=== PATIENT | male | born 1975 | race Caucasian/White ===

== ENCOUNTER 2019-08-14 13:10 | Emergency (ER) | payer SELFPAY ==
[2019-08-14 13:44] VITALS: BP 150/107; PULSE 92
--- NOTE | 2019-08-14 14:17 | EDM.PDOCBH ---
ED HPI GENERAL MEDICAL PROBLEM - General Chief Complaint: Behavioral/Psych Stated Complaint: DEPRESSION Time Seen by Provider: 08/14/19 13:29 Source of Information: Reports: Patient History Limitations: Reports: No Limitations - History of Present Illness INITIAL COMMENTS - FREE TEXT/NARRATIVE: Mr. Alexander is a very pleasant 44-year-old man with a past medical history significant for anxiety and depression. He states that he was on venlafaxine ( Effexor) from 2010 until last summer, at which time he discontinued the medication due to side effects including "brain tremors" and impotence. He states that the decision to discontinue the medication was made in consultation with his PCP, who prescribed a different antidepressant, however, the patient acknowledges that he did not feel that prescription out of fear of similar side effects. The patient now presents to the ED stating that he has been feeling anxious and depressed, along with insomnia for about 1 month. He states that he sleeps only about 3 hours per night. He also reports developing retrosternal chest discomfort, a tightness, for about the past month, that only occurs when he is feeling anxious, and typically persist for about 18 to 20 minutes. When he is feeling anxious with chest discomfort, he also feels nauseated and has sweaty palms. He denies associated dyspnea. The patient states that he has been feeling somewhat suicidal for the past month , however, he has not formulated a plan. He states that he considered shooting himself when he was in his 20s, and even though he had a gun, he talked himself out of it. He was psychiatrically hospitalized at that time for 4 days. He denies any other considerations to harm himself, and has never been otherwise psychiatrically hospitalized. The patient denies recent fever, chills, sore throat, ear pain, nasal or sinus congestion, cough, dyspnea, chest pain, palpitations, nausea, vomiting, constipation, diarrhea, abdominal pain, urinary symptoms, recent weight gain or weight loss, recent bloody bowel movements or black bowel movements, recent joint aches, headaches, or rashes. Here in the ED, the patient's initial BP is found to be elevated at 150/107, otherwise, he is hemodynamically stable, afebrile, saturating 98% on room air. The patient does not have a PCP. - Related Data Allergies Allergy/AdvReac Type Severity Reaction Status Date / Time morphine Allergy Hives Verified 11/25/18 02:16 Home Meds: Home Meds Escitalopram [Lexapro] 10 mg PO DAILY #30 tab 08/14/19 [Rx] Past Medical History Gastrointestinal History: Reports: Diverticulosis (diverticulitis), GERD, Hiatal Hernia Genitourinary History: Reports: Renal Calculus, Other (See Below) (Hepatic steatosis) Psychiatric History: Reports: Anxiety (untreated), Depression (untreated) Endocrine/Metabolic History: Reports: Obesity/BMI 30+ - Past Surgical History GI Surgical History: Reports: Hernia, Inguinal (bilateral, as an infant), Other (See Below) (Pyloroplasty as an infant) Male Surgical History: Reports: Lithotripsy (ESWL) (x 2) Musculoskeletal Surgical History: Reports: Other (See Below) (Right hand repair) Social & Family History - Tobacco Use Smoking Status *Q: Never Smoker - Caffeine Use Caffeine Use: Reports: None - Alcohol Use Alcohol Use History: No - Recreational Drug Use Recreational Drug Use: Yes Drug Use in Last 12 Months: Yes Recreational Drug Type: Reports: LSD (Acid) (last tried as a teenager), Marijuana/Hashish (last smoked late Jun 2019), Psilocybin (Mushrooms) (last tried as a teenager) - Living Situation & Occupation Living situation: Reports: Single, with Family Occupation: Employed ([employer]) ED ROS GENERAL - Review of Systems Review Of Systems: Comprehensive ROS is negative, except as noted in HPI. ED EXAM, BEHAVIORAL HEALTH - Physical Exam Exam: See Below Exam Limited By: No Limitations General Appearance: Alert, WD/WN, No Apparent Distress Eye Exam: Bilateral Eye: EOMI, Normal Inspection Ears: Normal External Exam, Hearing Grossly Normal Nose: Normal Inspection Throat/Mouth: Normal Inspection, Normal Lips, Normal Voice, No Airway Compromise Head: Atraumatic, Normocephalic Neck: Normal Inspection, Full Range of Motion Respiratory/Chest: No Respiratory Distress, Lungs Clear, Normal Breath Sounds, No Accessory Muscle Use Cardiovascular: Normal Peripheral Pulses, Regular Rate, Rhythm, No Edema, No Gallop, No JVD, No Murmur, No Rub GI/Abdominal: Normal Bowel Sounds, Soft, Non-Tender, No Organomegaly, No Distention, No Abnormal Bruit, No Mass (Male) Exam: Deferred Rectal (Males) Exam: Deferred Back Exam: Normal Inspection, Full Range of Motion, NT Extremities: Normal Inspection, Normal Range of Motion, No Pedal Edema, Normal Capillary Refill Neurological: Alert, Normal Cognition, No Motor/Sensory Deficits, Oriented x 3 Psychiatric: Normal Affect Skin Exam: Warm, Dry, Intact, Normal color, No rash COURSE, BEHAVIORAL HEALTH COMP - Course Vital Signs: Last Vital Signs Temp 37.0 C 08/14/19 13:27 Pulse 92 08/14/19 13:27 Resp 18 08/14/19 13:27 BP 150/107 H 08/14/19 13: Pulse Ox 98 08/14/19 13: Medical Clearance: 08/14/19 14:11 As above, the patient has been feeling anxious and depressed with vague feelings of harming himself over the past month, however, he has no plan and no prior attempt at harming himself. When offered the choice of being restarted on an antidepressant or being psychiatrically admitted so that he could be evaluated by a Psychiatrist, the patient stated that he did not want either, that he came to the ED hoping that I would prescribe a sleeping pill. I asked if he had considered Benadryl for sleep, but he stated that Benadryl made him feel hung-over in the morning. I explained that, under the circumstances, I did not think that prescribing a sleeping pill would be the right choice, that it would only mask his insomnia, and not address the underlying cause of his insomnia, namely, his untreated anxiety and depression. I explained that side effects with antidepressants are common, and that if one medication does not work, another should be tried, and that these medicines oftentimes take 3 or 4 weeks before they take effect, and that patients need to be patient with them. I explained that because of monitoring for side effects and possible dosage adjustments, these medications are rarely prescribed from the emergency department, however, if the patient agreed to follow-up with a PCP soon, I could start him on an antidepressant, different than the one he was on before. The patient agreed to this. For today's purposes, then, I will prescribe escitalopram (Lexapro), however, I advised the patient that the PCP that he follows up with may not want him to be on that, that they may prefer something else, so the patient needs to be aware that they may switch him. The patient expressed understanding. I will refer him to our clinic for follow-up, with the recommendation that if his symptoms worsen, that he return to the ED for reevaluation. Departure - Departure Time of Disposition: 14:13 Disposition: Home, Self-Care 01 Condition: Good Clinical Impression: Depression with anxiety - Discharge Information *PRESCRIPTION DRUG MONITORING PROGRAM REVIEWED*: Not Applicable *COPY OF PRESCRIPTION DRUG MONITORING REPORT IN PATIENT BHAVANA: Not Applicable Prescriptions: Escitalopram [Lexapro] 10 mg PO DAILY #30 tab Instructions: Generalized Anxiety Disorder, Adult Referrals: Daria Rodríguez NP [Nurse Practitioner] - Forms: ED Department Discharge Additional Instructions: You were seen in the emergency room for 1 month of feeling anxious, depressed, difficulty sleeping, and chest pain when you are feeling anxious. Transfer to a psychiatric hospital for evaluation by a Psychiatrist was offered , but declined. You have opted to be restarted on an antidepressant medication. A prescription for escitalopram (Lexapro) has been sent to the [facility] located in the [employer] store. Take 1 tablet of escitalopram every day, as prescribed. It is very important that you follow-up with the PCP soon. Please follow-up with Daria Rodríguez NP, or one of the other providers in the clinic, at the next available appointment. If you have symptoms of depression or feelings of harming yourself worsen, please return to the ER for reevaluation. Sepsis Event Note - Evaluation Sepsis Screening Result: No Definite Risk - Focused Exam Vital Signs: Vital Signs Temp Pulse Resp BP Pulse Ox 08/14/19 13:27 37.0 C 92 18 150/107 H 98 Date Exam was Performed: 08/14/19 Time Exam was Performed: 14:35
== END 2019-08-14 14:25 | disposition home or self-care (01) ==
LOC: JD.ED 13:10
DX: F41.8 Other specified anxiety disorders (principal); E66.9 Obesity, unspecified; Z68.35 Body mass index [BMI] 35.0-35.9, adult; Z79.899 Other long term (current) drug therapy; Z88.5 Allergy status to narcotic agent
CPT/HCPCS: 99283; 99284

== ENCOUNTER 2019-08-19 16:06 | Emergency (ER) | payer SELFPAY ==
--- NOTE | 2019-08-19 16:36 | EDM.PDOCBH ---
ED HPI GENERAL MEDICAL PROBLEM - General Chief Complaint: Behavioral/Psych Stated Complaint: depression/anxiety Time Seen by Provider: 08/19/19 16:30 Source of Information: Reports: Patient History Limitations: Reports: No Limitations - History of Present Illness INITIAL COMMENTS - FREE TEXT/NARRATIVE: 44-year-old male attends the ED today with increased anxiety and suicidal thought processes over the last several days. Patient has by history chronic insomnia with disrupted sleep pattern for several months. He attended the ED and was started on Lexapro 10 mg once daily for depression symptoms by Dr. Campbell 5 days ago. This likely has increased his anxiety levels and he states it is to the point that he has had intractable nausea and vomiting yesterday due to feeling so anxious. He admits to increased suicidal ideation but has no formative plan to end his life. Has significant insomnia. Denies any regular alcohol or substance abuse. Was on Effexor for about 8 years but discontinued the medication due to side effect profile particularly impotence. 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) Abdominal Pain Score (Numeric/FACES): 3 - Related Data Allergies Allergy/AdvReac Type Severity Reaction Status Date / Time morphine Allergy Severe Hives Verified 08/19/19 16:23 Home Meds: Home Meds Escitalopram [Lexapro] 10 mg PO DAILY #30 tab 08/14/19 [Rx] ClonazePAM [KlonoPIN] 2 mg PO ASDIRECTED #36 tablet 08/19/19 [Rx] Past Medical History - Past Health History Medical/Surgical History: Denies Medical/Surgical History Gastrointestinal History: Reports: Diverticulosis, GERD, Hiatal Hernia Other Gastrointestinal History: Pyloric stenosis Genitourinary History: Reports: Renal Calculus, Other (See Below) Psychiatric History: Reports: Anxiety, Depression Endocrine/Metabolic History: Reports: Obesity/BMI 30+ - Past Surgical History GI Surgical History: Reports: Hernia, Inguinal, Other (See Below) Male Surgical History: Reports: Lithotripsy (ESWL) Musculoskeletal Surgical History: Reports: Other (See Below) Social & Family History - Tobacco Use Smoking Status *Q: Never Smoker - Caffeine Use Caffeine Use: Reports: None - Recreational Drug Use Recreational Drug Use: No - Living Situation & Occupation Living situation: Reports: Single, with Family Occupation: Employed ([employer]) ED ROS GENERAL - Review of Systems Review Of Systems: See Below Constitutional: Reports: Malaise, Weakness, Fatigue, Decreased Appetite. Denies : Fever, Chills HEENT: Reports: No Symptoms Respiratory: Reports: No Symptoms Cardiovascular: Reports: Palpitations Endocrine: Reports: Fatigue (Primarily for not sleeping) GI/Abdominal: Reports: Nausea, Vomiting (Remittent nausea and vomiting) : Reports: No Symptoms Musculoskeletal: Reports: No Symptoms Skin: Reports: No Symptoms Neurological: Reports: Dizziness Psychiatric: Reports: Anxiety (Lysed anxiety disorder for many months), Depression, Mood Lability, Suicidal Ideation (Suicidal ideation), Other ( Insomnia). Denies: Confusion, Hallucinations, Homicidal Ideation Hematologic/Lymphatic: Reports: No Symptoms Immunologic: Reports: No Symptoms ED EXAM, BEHAVIORAL HEALTH - Physical Exam Exam: See Below Exam Limited By: No Limitations General Appearance: Alert, WD/WN, Anxious, Mild Distress, Other (Essential temperature 36.7 with pulse of 78 respiratory to 16 BP 05/09/1973 pulse ox 98% room air) Eye Exam: Bilateral Eye: Normal Inspection (No scleral icterus or blepharal pallor.) Throat/Mouth: Normal Inspection, Normal Lips, Normal Teeth, Normal Oropharynx Head: Atraumatic, Normocephalic Neck: Normal Inspection, Supple, Non-Tender, Full Range of Motion. No: Lymphadenopathy (L), Lymphadenopathy (R) Respiratory/Chest: No Respiratory Distress, Lungs Clear, Normal Breath Sounds, No Accessory Muscle Use, Chest Non-Tender Cardiovascular: Normal Peripheral Pulses, Regular Rate, Rhythm, No Edema, No Gallop, No Murmur, No Rub GI/Abdominal: Normal Bowel Sounds, Soft, Non-Tender, No Organomegaly, No Mass Back Exam: Normal Inspection Extremities: Normal Inspection, Normal Range of Motion, Non-Tender, No Pedal Edema Neurological: Alert, Normal Mood/Affect, CN II-XII Intact, Normal Cognition, No Motor/Sensory Deficits, Oriented x 3 Psychiatric: Alert, Normal Affect, Normal Cognition, Normal Mood Skin Exam: Warm, Dry, Intact, Normal color, No rash COURSE, BEHAVIORAL HEALTH COMP - Course Vital Signs: Last Vital Signs Temp 36.7 C 08/19/19 16:19 Pulse 78 08/19/19 16:19 Resp 16 08/19/19 16:19 BP 128/74 08/19/19 16:19 Pulse Ox 98 08/19/19 16:19 Re-Assessment/Re-Exam: 44-year-old male presents to the ED with major depressive symptoms with increased suicidal ideation. Patient has a history of depression which was well controlled with Effexor for about 8 years but he discontinued the medication several months ago due to side effect profile particularly impotence. Currently he has developed recurrence of symptoms with generalized anxiety disorder severely disrupted sleep pattern with significant insomnia and development of depression symptoms with suicidal ideation. He was seen through the ED 5 days ago and started on Lexapro 10 mg once daily but subsequently has developed increased anxiety which is not an uncommon side effect of beginning antidepressant medication. His sleeping problems persist. He has no formulated plan of how he would end his life. Thoughts are just in his head and he can get rid of them and they seem to becoming more frequent. At this time he does not feel he needs to be placed in a psychiatric facility. We entered into a long discussion about improving his sleep habits and his disrupted sleep pattern contributes to neurochemical formation in the brain. The plan will be to start him on lorazepam 1 mg in the morning 1 mg mid afternoon if needed for anxiety relief and 2 mg at bedtime to aid sleep for the next 2 and half weeks. He will continue Lexapro 10 mg once daily but have asked him to follow-up with primary care physician to increase it to a 20 mg dose in about 14 days time. Big fellow and 10 mg dosage is unlikely to improve his depressive symptoms. Return to the ED if symptoms are not getting better or he is feeling more suicidal. Departure - Departure Time of Disposition: 16:30 Disposition: Home, Self-Care 01 Condition: Fair Clinical Impression: Anxiety and depression, Depressive disorder, Anxiety Insomnia disorder Qualifiers: Insomnia type: psychophysiologic Qualified Code(s): F51.04 - Psychophysiologic insomnia - Discharge Information *PRESCRIPTION DRUG MONITORING PROGRAM REVIEWED*: Not Applicable *COPY OF PRESCRIPTION DRUG MONITORING REPORT IN PATIENT BHAVANA: Not Applicable Prescriptions: ClonazePAM [KlonoPIN] 2 mg PO ASDIRECTED #36 tablet Instructions: Living With Depression, Suicidal Feelings: How to Help Yourself, Insomnia, Living With Anxiety Referrals: PCP,None [Primary Care Provider] - Forms: ED Department Discharge Additional Instructions: Evaluation in the emergency room today in regards to persistent problems with severe insomnia and development of significant anxiety with associated nausea vomiting and underlying major depression. Increase suicidal ideation as of late with no defined plan to end your life. Did sleep pattern over the last several months is contributing to development of anxiety and depression. Recently restarted on Lexapro once daily and I would advise continuing this medication once every morning. Medication can increase anxiety levels particular the first 10 to 12 days of use and then it usually goes away. It takes about 3 weeks to start to become effective in terms of starting to relieve suicidal ideation thoughts and starting to lift depression. Where you are likely going to need an increase in dosage to the 20 mg tablet once daily after 14 days of the 10 mg daily. In the meantime suggest use of clonazepam 1 mg in the morning and then 1 mg mid afternoon if needed for anxiety relief and 2 mg at bedtime to help sleep. Suggest using this for the next 2 weeks until the Lexapro becomes effective. Suggest follow-up with a personal care provider in 14 days time to adjust your Lexapro dose upwards to 20 mg strength. If suicidal ideation thoughts persist or you feel worse please return to the ED for help. Will call the National suicide prevention Lifeline at feel you need to talk to somebody about your symptoms. Sepsis Event Note - Evaluation Sepsis Screening Result: No Definite Risk - Focused Exam Vital Signs: Vital Signs Temp Pulse Resp BP Pulse Ox 08/19/19 16:19 36.7 C 78 16 128/74 98 Date Exam was Performed: 08/19/19 Time Exam was Performed: 16:38
[2019-08-19 19:13] VITALS: BP 128/74; PULSE 78
== END 2019-08-19 16:45 | disposition home or self-care (01) ==
LOC: JD.ED 16:06
DX: F32.9 Major depressive disorder, single episode, unspecified (principal); F41.9 Anxiety disorder, unspecified; F51.04 Psychophysiologic insomnia; E66.9 Obesity, unspecified; Z88.5 Allergy status to narcotic agent; Z79.899 Other long term (current) drug therapy; Z68.22 Body mass index [BMI] 22.0-22.9, adult
CPT/HCPCS: 99283

== ENCOUNTER 2019-08-21 16:13 | Inpatient (IN) | payer SELFPAY ==
--- NOTE | 2019-08-21 17:10 | EDM.PDOCBH ---
<Yang Montez - Last Filed: 08/21/19 17:00> ED HPI GENERAL MEDICAL PROBLEM - General Chief Complaint: Behavioral/Psych Stated Complaint: Suicidal drug ingestion Time Seen by Provider: 08/21/19 16:40 - History of Present Illness INITIAL COMMENTS - FREE TEXT/NARRATIVE: 44-year-old male is brought in by [facility] deputies after voicing concerns of being suicidal and taking a bunch of medications. Patient has a long history of depression has been off his antidepressant since last year. He was seen here on the fourth and started on Lexapro 10 mg a day of which he said he took 10 today. Counting his medication he was given 30 and he has 22 or 23 in the bottle at this time and it was filled on the fourth of this month. He also states that he took 20+ Klonopin 2 mg each and 30 trazodone 50 mg each. Will not provide enough with a history as to the timing of when he actually took these medications. He voiced to the [facility]'s deputy that he would not be alive by the end of this week. Law enforcement has been called on him today and twice yesterday. The patient was seen here 2 days ago again in follow-up for his depression when he was seen here on the fourth and 2 days ago he voiced no concerns of being actively suicidal. This unfortunate patient was discussing the situation with his mother who, informed the patient according to the patient, to take all his medications and ended all. - Related Data Allergies Allergy/AdvReac Type Severity Reaction Status Date / Time morphine Allergy Severe Hives Verified 08/21/19 16:28 Home Meds: Home Meds Escitalopram [Lexapro] 10 mg PO DAILY #30 tab 08/14/19 [Rx] ClonazePAM [KlonoPIN] 2 mg PO ASDIRECTED #36 tablet 08/19/19 [Rx] Past Medical History - Past Health History Medical/Surgical History: Denies Medical/Surgical History Gastrointestinal History: Reports: Diverticulosis, GERD, Hiatal Hernia Other Gastrointestinal History: Pyloric stenosis Genitourinary History: Reports: Renal Calculus, Other (See Below) Psychiatric History: Reports: Anxiety, Depression Endocrine/Metabolic History: Reports: Obesity/BMI 30+ - Past Surgical History GI Surgical History: Reports: Hernia, Inguinal, Other (See Below) Male Surgical History: Reports: Lithotripsy (ESWL) Musculoskeletal Surgical History: Reports: Other (See Below) Social & Family History - Tobacco Use Smoking Status *Q: Current Status Unknown - Caffeine Use Caffeine Use: Reports: None - Living Situation & Occupation Living situation: Reports: Single, with Family Occupation: Employed ([employer]) ED ROS GENERAL - Review of Systems Review Of Systems: See Below Constitutional: Reports: No Symptoms HEENT: Reports: No Symptoms Respiratory: Reports: No Symptoms Cardiovascular: Reports: No Symptoms Endocrine: Reports: No Symptoms GI/Abdominal: Reports: No Symptoms : Reports: No Symptoms Musculoskeletal: Reports: No Symptoms Skin: Reports: No Symptoms Neurological: Reports: No Symptoms Psychiatric: Reports: Agitation, Anxiety, Depression, Mood Lability, Suicidal Ideation Hematologic/Lymphatic: Reports: No Symptoms Immunologic: Reports: No Symptoms ED EXAM, BEHAVIORAL HEALTH - Physical Exam Exam: See Below Exam Limited By: No Limitations General Appearance: Alert, No Apparent Distress EKG INTERPRETATION EKG Date: 08/21/19 Rhythm: NSR Caliente: Normal P-Wave: Present QRS: Other ST-T: Normal (Late transition) QT: Normal Comparison: NA - No Prior EKG EKG Interpretation Comments: Other than the early transition normal EKG COURSE, BEHAVIORAL HEALTH COMP - Course Vital Signs: Last Vital Signs Temp 97.1 F 08/21/19 16:21 Pulse 73 08/21/19 19:00 Resp 23 H 08/21/19 19:00 BP 114/88 08/21/19 19:00 Pulse Ox 95 08/21/19 19:00 Orders, Labs, Meds: Active Orders 24 hr Category Date Time Status EKG 12 Lead [EKG Documentation Completion] [RC] STAT Care 08/21/19 16:39 Active EKG 12 Lead [EKG Documentation Completion] [RC] STAT Care 08/21/19 19:45 Active Laboratory Tests 08/21/19 08/21/19 08/21/19 Range/Units 18:29 18:29 18:53 WBC 7.06 (4.23-9.07) K/mm3 RBC 5.55 (4.63-6.08) M/mm3 Hgb 15.5 D (13.7-17.5) gm/dl Hct 47.6 (40.1-51.0) % MCV 85.8 (79.0-92.2) fl MCH 27.9 (25.7-32.2) pg MCHC 32.6 (32.2-35.5) g/dl RDW Std Deviation 45.1 H (35.1-43.9) fL Plt Count 244 (163-337) K/mm3 MPV 10.3 (9.4-12.3) fl Neut % (Auto) 56.5 (34.0-67.9) % Lymph % (Auto) 27.9 (21.8-53.1) % Hunt % (Auto) 8.1 (5.3-12.2) % Eos % (Auto) 6.8 (0.8-7.0) Baso % (Auto) 0.6 (0.1-1.2) % Neut # (Auto) 3.99 (1.78-5.38) K/mm3 Lymph # (Auto) 1.97 (1.32-3.57) K/mm3 Hunt # (Auto) 0.57 (0.30-0.82) K/mm3 Eos # (Auto) 0.48 (0.04-0.54) K/mm3 Baso # (Auto) 0.04 (0.01-0.08) K/mm3 PT (9.7-12.0) SECONDS INR Sodium (136-145) mEq/L Potassium (3.5-5.1) mEq/L Chloride (98-107) mEq/L Carbon Dioxide (21-32) mEq/L Anion Gap (5-15) BUN (7-18) mg/dL Creatinine (0.7-1.3) mg/dL Est Cr Clr Drug Dosing mL/min Estimated GFR (MDRD) (>60) mL/min BUN/Creatinine Ratio (14-18) Glucose (74-106) mg/dL Calcium (8.5-10.1) mg/dL Total Bilirubin (0.2-1.0) mg/dL AST (15-37) U/L ALT (16-63) U/L Alkaline Phosphatase (46-116) U/L Total Protein (6.4-8.2) g/dl Albumin (3.4-5.0) g/dl Globulin gm/dL Albumin/Globulin Ratio (1-2) TSH 3rd Generation (0.358-3.74) uIU/mL Urine Color Yellow (Yellow) Urine Appearance Clear (Clear) Urine pH 6.0 (5.0-8.0) Ur Specific Touchet > or = 1.030 (1.005-1.030) Urine Protein Negative (Negative) Urine Glucose (UA) Negative (Negative) Urine Ketones Negative (Negative) Urine Occult Blood Negative (Negative) Urine Nitrite Negative (Negative) Urine Bilirubin Negative (Negative) Urine Urobilinogen 0.2 (0.2-1.0) Ur Leukocyte Esterase Negative (Negative) Salicylates (2.8-20) mg/dL Urine Opiates Screen Negative (QWSDUC=946) Ur Buprenorphine Scrn Negative (CUTOFF=10) Ur Oxycodone Screen Negative (JGV6NI=143) Urine Methadone Screen Negative (GRM8LB=461) Ur Propoxyphene Screen Negative (SSSOMK=944) Acetaminophen (10-30) ug/mL Ur Barbiturates Screen Negative (LKTGQD=923) Ur Tricyclics Screen Negative (VWIFRR=330) Ur Phencyclidine Scrn Negative (CUTOFF=25) Ur Amphetamine Screen Negative (OWWJZH=501) U Methamphetamines Scrn Negative (CNBNLX=308) U Benzodiazepines Scrn Presumptive positive H (BDWSNK=661) U Cocaine Metab Screen Negative (MLHNNC=301) U Marijuana (THC) Screen Negative (CUTOFF=50) Ethyl Alcohol (0.00) gm% 08/21/19 08/21/19 08/21/19 Range/Units 18:53 18:53 18:53 WBC (4.23-9.07) K/mm3 RBC (4.63-6.08) M/mm3 Hgb (13.7-17.5) gm/dl Hct (40.1-51.0) % MCV (79.0-92.2) fl MCH (25.7-32.2) pg MCHC (32.2-35.5) g/dl RDW Std Deviation (35.1-43.9) fL Plt Count (163-337) K/mm3 MPV (9.4-12.3) fl Neut % (Auto) (34.0-67.9) % Lymph % (Auto) (21.8-53.1) % Hunt % (Auto) (5.3-12.2) % Eos % (Auto) (0.8-7.0) Baso % (Auto) (0.1-1.2) % Neut # (Auto) (1.78-5.38) K/mm3 Lymph # (Auto) (1.32-3.57) K/mm3 Hunt # (Auto) (0.30-0.82) K/mm3 Eos # (Auto) (0.04-0.54) K/mm3 Baso # (Auto) (0.01-0.08) K/mm3 PT 10.9 (9.7-12.0) SECONDS INR 1.00 Sodium 143 (136-145) mEq/L Potassium 4.1 (3.5-5.1) mEq/L Chloride 105 (98-107) mEq/L Carbon Dioxide 27 (21-32) mEq/L Anion Gap 15.1 H (5-15) BUN 13 (7-18) mg/dL Creatinine 1.3 (0.7-1.3) mg/dL Est Cr Clr Drug Dosing 84.31 mL/min Estimated GFR (MDRD) 60 (>60) mL/min BUN/Creatinine Ratio 10.0 L (14-18) Glucose 87 (74-106) mg/dL Calcium 9.3 (8.5-10.1) mg/dL Total Bilirubin 0.6 (0.2-1.0) mg/dL AST 19 (15-37) U/L ALT 32 (16-63) U/L Alkaline Phosphatase 82 (46-116) U/L Total Protein 7.8 (6.4-8.2) g/dl Albumin 3.7 (3.4-5.0) g/dl Globulin 4.1 gm/dL Albumin/Globulin Ratio 0.9 L (1-2) TSH 3rd Generation 1.731 (0.358-3.74) uIU/mL Urine Color (Yellow) Urine Appearance (Clear) Urine pH (5.0-8.0) Ur Specific Touchet (1.005-1.030) Urine Protein (Negative) Urine Glucose (UA) (Negative) Urine Ketones (Negative) Urine Occult Blood (Negative) Urine Nitrite (Negative) Urine Bilirubin (Negative) Urine Urobilinogen (0.2-1.0) Ur Leukocyte Esterase (Negative) Salicylates (2.8-20) mg/dL Urine Opiates Screen (MNGKAF=976) Ur Buprenorphine Scrn (CUTOFF=10) Ur Oxycodone Screen (RIY4ER=966) Urine Methadone Screen (DAS3YA=031) Ur Propoxyphene Screen (SHGVSC=746) Acetaminophen 0 L (10-30) ug/mL Ur Barbiturates Screen (JYHGEA=094) Ur Tricyclics Screen (ZYGEBT=507) Ur Phencyclidine Scrn (CUTOFF=25) Ur Amphetamine Screen (XCCAMO=901) U Methamphetamines Scrn (MBVRME=526) U Benzodiazepines Scrn (XZOZDC=392) U Cocaine Metab Screen (NXPGUN=049) U Marijuana (THC) Screen (CUTOFF=50) Ethyl Alcohol 0.01 (0.00) gm% 08/21/19 Range/Units 18:53 WBC (4.23-9.07) K/mm3 RBC (4.63-6.08) M/mm3 Hgb (13.7-17.5) gm/dl Hct (40.1-51.0) % MCV (79.0-92.2) fl MCH (25.7-32.2) pg MCHC (32.2-35.5) g/dl RDW Std Deviation (35.1-43.9) fL Plt Count (163-337) K/mm3 MPV (9.4-12.3) fl Neut % (Auto) (34.0-67.9) % Lymph % (Auto) (21.8-53.1) % Hunt % (Auto) (5.3-12.2) % Eos % (Auto) (0.8-7.0) Baso % (Auto) (0.1-1.2) % Neut # (Auto) (1.78-5.38) K/mm3 Lymph # (Auto) (1.32-3.57) K/mm3 Hunt # (Auto) (0.30-0.82) K/mm3 Eos # (Auto) (0.04-0.54) K/mm3 Baso # (Auto) (0.01-0.08) K/mm3 PT (9.7-12.0) SECONDS INR Sodium (136-145) mEq/L Potassium (3.5-5.1) mEq/L Chloride (98-107) mEq/L Carbon Dioxide (21-32) mEq/L Anion Gap (5-15) BUN (7-18) mg/dL Creatinine (0.7-1.3) mg/dL Est Cr Clr Drug Dosing mL/min Estimated GFR (MDRD) (>60) mL/min BUN/Creatinine Ratio (14-18) Glucose (74-106) mg/dL Calcium (8.5-10.1) mg/dL Total Bilirubin (0.2-1.0) mg/dL AST (15-37) U/L ALT (16-63) U/L Alkaline Phosphatase (46-116) U/L Total Protein (6.4-8.2) g/dl Albumin (3.4-5.0) g/dl Globulin gm/dL Albumin/Globulin Ratio (1-2) TSH 3rd Generation (0.358-3.74) uIU/mL Urine Color (Yellow) Urine Appearance (Clear) Urine pH (5.0-8.0) Ur Specific Touchet (1.005-1.030) Urine Protein (Negative) Urine Glucose (UA) (Negative) Urine Ketones (Negative) Urine Occult Blood (Negative) Urine Nitrite (Negative) Urine Bilirubin (Negative) Urine Urobilinogen (0.2-1.0) Ur Leukocyte Esterase (Negative) Salicylates 2.1 L (2.8-20) mg/dL Urine Opiates Screen (ZYKZMM=974) Ur Buprenorphine Scrn (CUTOFF=10) Ur Oxycodone Screen (JEG9WY=108) Urine Methadone Screen (NZJ8VS=826) Ur Propoxyphene Screen (AWZWIU=601) Acetaminophen (10-30) ug/mL Ur Barbiturates Screen (DSIJIJ=144) Ur Tricyclics Screen (NHRRJP=217) Ur Phencyclidine Scrn (CUTOFF=25) Ur Amphetamine Screen (DGBXUD=714) U Methamphetamines Scrn (HXKBUR=968) U Benzodiazepines Scrn (WPWWFK=923) U Cocaine Metab Screen (RLGNXK=861) U Marijuana (THC) Screen (CUTOFF=50) Ethyl Alcohol (0.00) gm% Departure - Departure Disposition: Admitted As Inpatient 66 Clinical Impression: Suicide attempt by drug overdose - Discharge Information Referrals: Linda Castano NP [Primary Care Provider] - Forms: ED Department Discharge Sepsis Event Note - Evaluation Sepsis Screening Result: No Definite Risk - Focused Exam Vital Signs: Vital Signs Temp Pulse Resp BP Pulse Ox 08/21/19 19:00 73 23 H 114/88 95 08/21/19 16:21 97.1 F 99 16 117/79 94 L Date Exam was Performed: 08/21/19 Time Exam was Performed: 17:00 - My Orders Last 24 Hours: My Active Orders 08/21/19 19:45 EKG 12 Lead [EKG Documentation Completion] [RC] STAT - Assessment/Plan Last 24 Hours: My Active Orders 08/21/19 19:45 EKG 12 Lead [EKG Documentation Completion] [RC] STAT <Barbara Chaney - Last Filed: 08/21/19 21:00> COURSE, BEHAVIORAL HEALTH COMP - Course Medical Clearance: 08/21/19 20:58 Care was assumed from Dr. Glaser seen. Patient's work-up was significant for a positive benzodiazepine, blood alcohol 0.01. Work-up was otherwise normal. Repeat EKG was completed and was found to be normal. I called and spoke with the psychiatrist on-call at [facility], Dr. Win. He stated that the patient should be observed overnight on the medical floor due to the amount of Klonopin that he took and is concerned that he may not protect his airway when he is sleeping. [facility] has been here with the patient since his arrival. They completed the petition for involuntary commitment. Spoke with Dr. Arreola, hospitalist material handler floorperson. Patient will be admitted to the ICU with one- on-one observation. [facility] stated that they will have a crew available in the morning to transport him when he is medically stable. Departure - Departure Time of Disposition: 20:59 Condition: Fair Sepsis Event Note - Focused Exam Date Exam was Performed: 08/21/19 Time Exam was Performed: 20:57
--- NOTE | 2019-08-21 22:20 | PCM.HP.2 ---
H&P History of Present Illness - General Date of Service: 08/21/19 Admit Problem/Dx: Admission Diagnosis/Problem Admission Diagnosis/Problem Drug overdose - History of Present Illness Initial Comments - Free Text/Narative: 44-year-old male presented to the emergency department via [facility] with suicidal ideation. When I interviewed the patient he was sedated and I was unable to get a history. Therefore, history was obtained through the emergency department and [facility] department notes. Patient has a long history of depression. He was seen on August 14, 2019 in the emergency department and started on Lexapro 10 mg daily. Patient followed up in the emergency department 2 days ago for his depression at that time voiced no concerns of suicidal ideation. Apparently patient took 7 or 8 Lexapro, over 20 Klonopin 2 mg and 30 trazodone 50 mg in an attempt to end his life. Per poison control patient was kept in the emergency department for 4 hours for monitoring. Patient's condition was discussed with psychiatry at [facility] in [place], Dr. Win who felt he should be followed overnight for respiratory depression. Urine drug screen showed positive benzodiazepines and a blood alcohol level of 0.01. The remainder of the labs were normal. EKG showed no significant abnormalities. - Related Data Allergies/Adverse Reactions: Allergies Allergy/AdvReac Type Severity Reaction Status Date / Time morphine Allergy Severe Hives Verified 08/21/19 22:19 Home Medications: Home Meds Escitalopram [Lexapro] 10 mg PO DAILY #30 tab 08/14/19 [Rx] ClonazePAM [KlonoPIN] 2 mg PO ASDIRECTED #36 tablet 08/19/19 [Rx] Past Medical History - Past Health History Medical/Surgical History: Denies Medical/Surgical History Gastrointestinal History: Reports: Diverticulosis, GERD, Hiatal Hernia Other Gastrointestinal History: Pyloric stenosis Genitourinary History: Reports: Renal Calculus, Other (See Below) Psychiatric History: Reports: Anxiety, Depression Endocrine/Metabolic History: Reports: Obesity/BMI 30+ - Past Surgical History GI Surgical History: Reports: Hernia, Inguinal, Other (See Below) Male Surgical History: Reports: Lithotripsy (ESWL) Musculoskeletal Surgical History: Reports: Other (See Below) Social & Family History - Tobacco Use Smoking Status *Q: Current Status Unknown - Caffeine Use Caffeine Use: Reports: None - Living Situation & Occupation Living situation: Reports: Single, with Family Occupation: Employed ([employer]) H&P Review of Systems - Review of Systems: Review Of Systems: Unable To Obtain Reason Not Obtained: Sedated Exam - Exam Exam: See Below - Vital Signs Vital Signs: Last Vital Signs Temp 97.1 F 08/21/19 16:21 Pulse 73 08/21/19 19:00 Resp 23 H 08/21/19 19:00 BP 114/88 08/21/19 19:00 Pulse Ox 95 08/21/19 19:00 Weight: 250 lb - Exam Quality Assessment: No: Supplemental Oxygen General: Sedated HEENT: Conjunctiva Clear, Mucosa Moist & [place] Neck: Supple, Trachea Midline, 2 Lungs: Clear to Auscultation, Normal Respiratory Effort Cardiovascular: Regular Rate, Regular Rhythm GI/Abdominal Exam: Normal Bowel Sounds, Soft, Non-Tender, No Organomegaly, No Distention, No Abnormal Bruit, No Mass Back Exam: Normal Inspection Extremities: Normal Inspection, Non-Tender, No Pedal Edema, Normal Capillary Refill Skin: Warm, Dry, Intact Neuro Extensive - Mental Status: Opens Eyes to Commands, Slow Response to Commands - Patient Data Lab Results Last 24 hrs: Laboratory Results - last 24 hr 08/21/19 08/21/19 08/21/19 Range/Units 18:29 18:29 18:53 WBC 7.06 (4.23-9.07) K/mm3 RBC 5.55 (4.63-6.08) M/mm3 Hgb 15.5 D (13.7-17.5) gm/dl Hct 47.6 (40.1-51.0) % MCV 85.8 (79.0-92.2) fl MCH 27.9 (25.7-32.2) pg MCHC 32.6 (32.2-35.5) g/dl RDW Std Deviation 45.1 H (35.1-43.9) fL Plt Count 244 (163-337) K/mm3 MPV 10.3 (9.4-12.3) fl Neut % (Auto) 56.5 (34.0-67.9) % Lymph % (Auto) 27.9 (21.8-53.1) % [place] % (Auto) 8.1 (5.3-12.2) % Eos % (Auto) 6.8 (0.8-7.0) Baso % (Auto) 0.6 (0.1-1.2) % Neut # (Auto) 3.99 (1.78-5.38) K/mm3 Lymph # (Auto) 1.97 (1.32-3.57) K/mm3 [place] # (Auto) 0.57 (0.30-0.82) K/mm3 Eos # (Auto) 0.48 (0.04-0.54) K/mm3 Baso # (Auto) 0.04 (0.01-0.08) K/mm3 PT (9.7-12.0) SECONDS INR Sodium (136-145) mEq/L Potassium (3.5-5.1) mEq/L Chloride (98-107) mEq/L Carbon Dioxide (21-32) mEq/L Anion Gap (5-15) BUN (7-18) mg/dL Creatinine (0.7-1.3) mg/dL Est Cr Clr Drug Dosing mL/min Estimated GFR (MDRD) (>60) mL/min BUN/Creatinine Ratio (14-18) Glucose (74-106) mg/dL Calcium (8.5-10.1) mg/dL Total Bilirubin (0.2-1.0) mg/dL AST (15-37) U/L ALT (16-63) U/L Alkaline Phosphatase (46-116) U/L Total Protein (6.4-8.2) g/dl Albumin (3.4-5.0) g/dl Globulin gm/dL Albumin/Globulin Ratio (1-2) TSH 3rd Generation (0.358-3.74) uIU/mL Urine Color Yellow (Yellow) Urine Appearance Clear (Clear) Urine pH 6.0 (5.0-8.0) Ur Specific [place] > or = 1.030 (1.005-1.030) Urine Protein Negative (Negative) Urine Glucose (UA) Negative (Negative) Urine Ketones Negative (Negative) Urine Occult Blood Negative (Negative) Urine Nitrite Negative (Negative) Urine Bilirubin Negative (Negative) Urine Urobilinogen 0.2 (0.2-1.0) Ur Leukocyte Esterase Negative (Negative) Salicylates (2.8-20) mg/dL Urine Opiates Screen Negative (MBAMQL=315) Ur Buprenorphine Scrn Negative (CUTOFF=10) Ur Oxycodone Screen Negative (FDL9SE=948) Urine Methadone Screen Negative (SSW3QG=600) Ur Propoxyphene Screen Negative (ICAJKR=374) Acetaminophen (10-30) ug/mL Ur Barbiturates Screen Negative (TKZKXN=644) Ur Tricyclics Screen Negative (DMVWZV=404) Ur Phencyclidine Scrn Negative (CUTOFF=25) Ur Amphetamine Screen Negative (NQAFIA=112) U Methamphetamines Scrn Negative (SGLXJW=061) U Benzodiazepines Scrn Presumptive positive H (OJBDTM=709) U Cocaine Metab Screen Negative (XWYZOB=299) U Marijuana (THC) Screen Negative (CUTOFF=50) Ethyl Alcohol (0.00) gm% 08/21/19 08/21/19 08/21/19 Range/Units 18:53 18:53 18:53 WBC (4.23-9.07) K/mm3 RBC (4.63-6.08) M/mm3 Hgb (13.7-17.5) gm/dl Hct (40.1-51.0) % MCV (79.0-92.2) fl MCH (25.7-32.2) pg MCHC (32.2-35.5) g/dl RDW Std Deviation (35.1-43.9) fL Plt Count (163-337) K/mm3 MPV (9.4-12.3) fl Neut % (Auto) (34.0-67.9) % Lymph % (Auto) (21.8-53.1) % [place] % (Auto) (5.3-12.2) % Eos % (Auto) (0.8-7.0) Baso % (Auto) (0.1-1.2) % Neut # (Auto) (1.78-5.38) K/mm3 Lymph # (Auto) (1.32-3.57) K/mm3 [place] # (Auto) (0.30-0.82) K/mm3 Eos # (Auto) (0.04-0.54) K/mm3 Baso # (Auto) (0.01-0.08) K/mm3 PT 10.9 (9.7-12.0) SECONDS INR 1.00 Sodium 143 (136-145) mEq/L Potassium 4.1 (3.5-5.1) mEq/L Chloride 105 (98-107) mEq/L Carbon Dioxide 27 (21-32) mEq/L Anion Gap 15.1 H (5-15) BUN 13 (7-18) mg/dL Creatinine 1.3 (0.7-1.3) mg/dL Est Cr Clr Drug Dosing 84.31 mL/min Estimated GFR (MDRD) 60 (>60) mL/min BUN/Creatinine Ratio 10.0 L (14-18) Glucose 87 (74-106) mg/dL Calcium 9.3 (8.5-10.1) mg/dL Total Bilirubin 0.6 (0.2-1.0) mg/dL AST 19 (15-37) U/L ALT 32 (16-63) U/L Alkaline Phosphatase 82 (46-116) U/L Total Protein 7.8 (6.4-8.2) g/dl Albumin 3.7 (3.4-5.0) g/dl Globulin 4.1 gm/dL Albumin/Globulin Ratio 0.9 L (1-2) TSH 3rd Generation 1.731 (0.358-3.74) uIU/mL Urine Color (Yellow) Urine Appearance (Clear) Urine pH (5.0-8.0) Ur Specific [place] (1.005-1.030) Urine Protein (Negative) Urine Glucose (UA) (Negative) Urine Ketones (Negative) Urine Occult Blood (Negative) Urine Nitrite (Negative) Urine Bilirubin (Negative) Urine Urobilinogen (0.2-1.0) Ur Leukocyte Esterase (Negative) Salicylates (2.8-20) mg/dL Urine Opiates Screen (RXWRKJ=608) Ur Buprenorphine Scrn (CUTOFF=10) Ur Oxycodone Screen (GPD6JH=731) Urine Methadone Screen (HGU2NX=951) Ur Propoxyphene Screen (DYHHNZ=404) Acetaminophen 0 L (10-30) ug/mL Ur Barbiturates Screen (XFZUYJ=209) Ur Tricyclics Screen (UZXSAL=228) Ur Phencyclidine Scrn (CUTOFF=25) Ur Amphetamine Screen (CNGAEH=914) U Methamphetamines Scrn (BEGBEI=426) U Benzodiazepines Scrn (BLECHB=369) U Cocaine Metab Screen (RXUDXV=322) U Marijuana (THC) Screen (CUTOFF=50) Ethyl Alcohol 0.01 (0.00) gm% 08/21/19 Range/Units 18:53 WBC (4.23-9.07) K/mm3 RBC (4.63-6.08) M/mm3 Hgb (13.7-17.5) gm/dl Hct (40.1-51.0) % MCV (79.0-92.2) fl MCH (25.7-32.2) pg MCHC (32.2-35.5) g/dl RDW Std Deviation (35.1-43.9) fL Plt Count (163-337) K/mm3 MPV (9.4-12.3) fl Neut % (Auto) (34.0-67.9) % Lymph % (Auto) (21.8-53.1) % [place] % (Auto) (5.3-12.2) % Eos % (Auto) (0.8-7.0) Baso % (Auto) (0.1-1.2) % Neut # (Auto) (1.78-5.38) K/mm3 Lymph # (Auto) (1.32-3.57) K/mm3 [place] # (Auto) (0.30-0.82) K/mm3 Eos # (Auto) (0.04-0.54) K/mm3 Baso # (Auto) (0.01-0.08) K/mm3 PT (9.7-12.0) SECONDS INR Sodium (136-145) mEq/L Potassium (3.5-5.1) mEq/L Chloride (98-107) mEq/L Carbon Dioxide (21-32) mEq/L Anion Gap (5-15) BUN (7-18) mg/dL Creatinine (0.7-1.3) mg/dL Est Cr Clr Drug Dosing mL/min Estimated GFR (MDRD) (>60) mL/min BUN/Creatinine Ratio (14-18) Glucose (74-106) mg/dL Calcium (8.5-10.1) mg/dL Total Bilirubin (0.2-1.0) mg/dL AST (15-37) U/L ALT (16-63) U/L Alkaline Phosphatase (46-116) U/L Total Protein (6.4-8.2) g/dl Albumin (3.4-5.0) g/dl Globulin gm/dL Albumin/Globulin Ratio (1-2) TSH 3rd Generation (0.358-3.74) uIU/mL Urine Color (Yellow) Urine Appearance (Clear) Urine pH (5.0-8.0) Ur Specific [place] (1.005-1.030) Urine Protein (Negative) Urine Glucose (UA) (Negative) Urine Ketones (Negative) Urine Occult Blood (Negative) Urine Nitrite (Negative) Urine Bilirubin (Negative) Urine Urobilinogen (0.2-1.0) Ur Leukocyte Esterase (Negative) Salicylates 2.1 L (2.8-20) mg/dL Urine Opiates Screen (NMAKRK=029) Ur Buprenorphine Scrn (CUTOFF=10) Ur Oxycodone Screen (FKR3PD=621) Urine Methadone Screen (IGA7MG=740) Ur Propoxyphene Screen (IBUBPV=209) Acetaminophen (10-30) ug/mL Ur Barbiturates Screen (FCSCGW=418) Ur Tricyclics Screen (AZUEAA=612) Ur Phencyclidine Scrn (CUTOFF=25) Ur Amphetamine Screen (EFKIKW=147) U Methamphetamines Scrn (RFAZEY=230) U Benzodiazepines Scrn (XWCGVK=648) U Cocaine Metab Screen (ZCGAYI=344) U Marijuana (THC) Screen (CUTOFF=50) Ethyl Alcohol (0.00) gm% Result Diagrams: 08/21/19 18:53 08/21/19 18:53 EKG INTERPRETATION EKG Date: 08/21/19 Rhythm: NSR Rate (Beats/Min): 75 [place]: Normal P-Wave: Present QRS: Normal ST-T: Normal QT: Normal Sepsis Event Note - Evaluation Sepsis Screening Result: No Definite Risk - Focused Exam Vital Signs: Vital Signs Temp Pulse Resp BP Pulse Ox 08/21/19 19:00 73 23 H 114/88 95 08/21/19 16:21 97.1 F 99 16 117/79 94 L Date Exam was Performed: 08/21/19 Time Exam was Performed: 22:12 Problem List Initiated/Reviewed/Updated: Yes Orders Last 24hrs: Active Orders 24 hr Category Date Time Status Admission Status [Patient Status] [ADT] Routine ADT 08/21/19 20:59 Active Oxygen Therapy [RC] PRN Care 08/21/19 22:07 Ordered Up With Assistance [RC] ASDIRECTED Care 08/21/19 22:07 Ordered VTE/DVT Education [RC] PER UNIT ROUTINE Care 08/21/19 22:07 Ordered Vital Signs [RC] Q4H Care 08/21/19 22:07 Ordered Nothing per Oral Now Diet [DIET] Diet 08/22/19 Breakfast Ordered CBC WITH AUTO DIFF [HEME] AM Lab 08/22/19 05:11 Ordered COMPREHENSIVE METABOLIC PN,CMP [CHEM] AM Lab 08/22/19 05:11 Ordered MAGNESIUM [CHEM] AM Lab 08/22/19 05:11 Ordered Dextrose 5%-1/2 Normal Saline @ 125 MLS/HR(1000ml) Med 08/21/19 22:15 Ordered Dextrose 5%-0.45% NaCl [Dextrose 5%-1/2 NS] 1,000 ml IV ASDIRECTED Resuscitation Status Routine Resus Stat 08/21/19 22:07 Ordered Medication Orders Dextrose/Sodium Chloride (Dextrose 5%-1/2 Ns) 1,000 mls @ 125 mls/hr IV ASDIRECTED EL Assessment/Plan Comment:: Overdose of clonazepam, Lexapro, and trazodone in an apparent suicide attempt * Patient stated that he took the medication in a suicide attempt * Poison control consulted * Dr. Win from [facility] in [place] was consulted in the emergency department * Patient significantly sedated but is maintaining airway Plan * Admit to ICU with one-on-one nursing * Continuous pulse ox and continue telemetry * N.p.o. until more awake * D5 half-normal saline at 125 mL/h * CBC, CMP, mag in the morning * Disposition: Plan transfer to psychiatric unit as soon as he is medically stable * CODE STATUS full code * VTE prophylaxis Lovenox - Mortality Measure Prognosis:: Good
[2019-08-21] MEDS: Dextrose 5%-0.45% NaCl 1,000 ML IV SCH (23:37)
[2019-08-22] MEDS: Enoxaparin 40 MG/0.4 ML Syringe SUBCUT SCH (09:58)
[2019-08-22] MEDS: Dextrose 5%-0.45% NaCl 1,000 ML IV SCH ×2 (09:58→17:32)
--- NOTE | 2019-08-22 11:05 | PCM.PN ---
- General Info Date of Service: 08/22/19 Admission Dx/Problem (Free Text): Admission Diagnosis/Problem Admission Diagnosis/Problem Drug overdose Subjective Update: Patient continues to be fatigued and sedated. He does deny any pain, but otherwise is not very talkative. He did urinate earlier but has not had a bowel movement. Functional Status: Reports: Pain Controlled - Review of Systems General: Reports: Fatigue Pulmonary: Reports: No Symptoms Cardiovascular: Reports: No Symptoms Gastrointestinal: Reports: No Symptoms - Patient Data Vitals - Most Recent: Last Vital Signs Temp 98.2 F 08/22/19 08:00 Pulse 73 08/21/19 19:00 Resp 20 08/22/19 08:00 BP 119/75 08/22/19 08:00 Pulse Ox 97 08/22/19 10:23 Weight - Most Recent: 288 lb 1.6 oz I&O - Last 24 Hours: Intake & Output 08/21/19 08/22/19 08/22/19 22:59 06:59 14:59 Intake Total 556 Balance 556 Lab Results Last 24 Hours: Laboratory Results - last 24 hr 08/21/19 08/21/19 08/21/19 Range/Units 18:29 18:29 18:53 WBC 7.06 (4.23-9.07) K/mm3 RBC 5.55 (4.63-6.08) M/mm3 Hgb 15.5 D (13.7-17.5) gm/dl Hct 47.6 (40.1-51.0) % MCV 85.8 (79.0-92.2) fl MCH 27.9 (25.7-32.2) pg MCHC 32.6 (32.2-35.5) g/dl RDW Std Deviation 45.1 H (35.1-43.9) fL Plt Count 244 (163-337) K/mm3 MPV 10.3 (9.4-12.3) fl Neut % (Auto) 56.5 (34.0-67.9) % Lymph % (Auto) 27.9 (21.8-53.1) % [place] % (Auto) 8.1 (5.3-12.2) % Eos % (Auto) 6.8 (0.8-7.0) Baso % (Auto) 0.6 (0.1-1.2) % Neut # (Auto) 3.99 (1.78-5.38) K/mm3 Lymph # (Auto) 1.97 (1.32-3.57) K/mm3 [place] # (Auto) 0.57 (0.30-0.82) K/mm3 Eos # (Auto) 0.48 (0.04-0.54) K/mm3 Baso # (Auto) 0.04 (0.01-0.08) K/mm3 PT (9.7-12.0) SECONDS INR Sodium (136-145) mEq/L Potassium (3.5-5.1) mEq/L Chloride (98-107) mEq/L Carbon Dioxide (21-32) mEq/L Anion Gap (5-15) BUN (7-18) mg/dL Creatinine (0.7-1.3) mg/dL Est Cr Clr Drug Dosing mL/min Estimated GFR (MDRD) (>60) mL/min BUN/Creatinine Ratio (14-18) Glucose (74-106) mg/dL Calcium (8.5-10.1) mg/dL Magnesium (1.8-2.4) mg/dl Total Bilirubin (0.2-1.0) mg/dL AST (15-37) U/L ALT (16-63) U/L Alkaline Phosphatase (46-116) U/L Total Protein (6.4-8.2) g/dl Albumin (3.4-5.0) g/dl Globulin gm/dL Albumin/Globulin Ratio (1-2) TSH 3rd Generation (0.358-3.74) uIU/mL Urine Color Yellow (Yellow) Urine Appearance Clear (Clear) Urine pH 6.0 (5.0-8.0) Ur Specific [place] > or = 1.030 (1.005-1.030) Urine Protein Negative (Negative) Urine Glucose (UA) Negative (Negative) Urine Ketones Negative (Negative) Urine Occult Blood Negative (Negative) Urine Nitrite Negative (Negative) Urine Bilirubin Negative (Negative) Urine Urobilinogen 0.2 (0.2-1.0) Ur Leukocyte Esterase Negative (Negative) Salicylates (2.8-20) mg/dL Urine Opiates Screen Negative (OKJQOW=205) Ur Buprenorphine Scrn Negative (CUTOFF=10) Ur Oxycodone Screen Negative (EVK6HF=918) Urine Methadone Screen Negative (YKP1NF=301) Ur Propoxyphene Screen Negative (UBXTBF=499) Acetaminophen (10-30) ug/mL Ur Barbiturates Screen Negative (GQJNPQ=870) Ur Tricyclics Screen Negative (DSQDXQ=668) Ur Phencyclidine Scrn Negative (CUTOFF=25) Ur Amphetamine Screen Negative (TFLLRK=103) U Methamphetamines Scrn Negative (RWJKUC=207) U Benzodiazepines Scrn Presumptive positive H (MPDVST=991) U Cocaine Metab Screen Negative (CIHGLA=379) U Marijuana (THC) Screen Negative (CUTOFF=50) Ethyl Alcohol (0.00) gm% 08/21/19 08/21/19 08/21/19 Range/Units 18:53 18:53 18:53 WBC (4.23-9.07) K/mm3 RBC (4.63-6.08) M/mm3 Hgb (13.7-17.5) gm/dl Hct (40.1-51.0) % MCV (79.0-92.2) fl MCH (25.7-32.2) pg MCHC (32.2-35.5) g/dl RDW Std Deviation (35.1-43.9) fL Plt Count (163-337) K/mm3 MPV (9.4-12.3) fl Neut % (Auto) (34.0-67.9) % Lymph % (Auto) (21.8-53.1) % [place] % (Auto) (5.3-12.2) % Eos % (Auto) (0.8-7.0) Baso % (Auto) (0.1-1.2) % Neut # (Auto) (1.78-5.38) K/mm3 Lymph # (Auto) (1.32-3.57) K/mm3 [place] # (Auto) (0.30-0.82) K/mm3 Eos # (Auto) (0.04-0.54) K/mm3 Baso # (Auto) (0.01-0.08) K/mm3 PT 10.9 (9.7-12.0) SECONDS INR 1.00 Sodium 143 (136-145) mEq/L Potassium 4.1 (3.5-5.1) mEq/L Chloride 105 (98-107) mEq/L Carbon Dioxide 27 (21-32) mEq/L Anion Gap 15.1 H (5-15) BUN 13 (7-18) mg/dL Creatinine 1.3 (0.7-1.3) mg/dL Est Cr Clr Drug Dosing 84.31 mL/min Estimated GFR (MDRD) 60 (>60) mL/min BUN/Creatinine Ratio 10.0 L (14-18) Glucose 87 (74-106) mg/dL Calcium 9.3 (8.5-10.1) mg/dL Magnesium (1.8-2.4) mg/dl Total Bilirubin 0.6 (0.2-1.0) mg/dL AST 19 (15-37) U/L ALT 32 (16-63) U/L Alkaline Phosphatase 82 (46-116) U/L Total Protein 7.8 (6.4-8.2) g/dl Albumin 3.7 (3.4-5.0) g/dl Globulin 4.1 gm/dL Albumin/Globulin Ratio 0.9 L (1-2) TSH 3rd Generation 1.731 (0.358-3.74) uIU/mL Urine Color (Yellow) Urine Appearance (Clear) Urine pH (5.0-8.0) Ur Specific [place] (1.005-1.030) Urine Protein (Negative) Urine Glucose (UA) (Negative) Urine Ketones (Negative) Urine Occult Blood (Negative) Urine Nitrite (Negative) Urine Bilirubin (Negative) Urine Urobilinogen (0.2-1.0) Ur Leukocyte Esterase (Negative) Salicylates (2.8-20) mg/dL Urine Opiates Screen (GKBMKM=236) Ur Buprenorphine Scrn (CUTOFF=10) Ur Oxycodone Screen (UCB4JP=404) Urine Methadone Screen (KBA8TL=509) Ur Propoxyphene Screen (UHDQRN=468) Acetaminophen 0 L (10-30) ug/mL Ur Barbiturates Screen (BUDGIP=597) Ur Tricyclics Screen (COPQAB=441) Ur Phencyclidine Scrn (CUTOFF=25) Ur Amphetamine Screen (VVPKPZ=011) U Methamphetamines Scrn (ERYTPB=429) U Benzodiazepines Scrn (WABROS=960) U Cocaine Metab Screen (IZGTBI=634) U Marijuana (THC) Screen (CUTOFF=50) Ethyl Alcohol 0.01 (0.00) gm% 05/11/20 05/12/20 05/12/20 Range/Units 18:53 05:07 05:07 WBC 7.31 (4.23-9.07) K/mm3 RBC 4.95 (4.63-6.08) M/mm3 Hgb 14.0 D (13.7-17.5) gm/dl Hct 43.1 (40.1-51.0) % MCV 87.1 (79.0-92.2) fl MCH 28.3 (25.7-32.2) pg MCHC 32.5 (32.2-35.5) g/dl RDW Std Deviation 46.0 H (35.1-43.9) fL Plt Count 212 (163-337) K/mm3 MPV 10.6 (9.4-12.3) fl Neut % (Auto) 58.6 (34.0-67.9) % Lymph % (Auto) 26.1 (21.8-53.1) % [place] % (Auto) 8.6 (5.3-12.2) % Eos % (Auto) 6.3 (0.8-7.0) Baso % (Auto) 0.3 (0.1-1.2) % Neut # (Auto) 4.28 (1.78-5.38) K/mm3 Lymph # (Auto) 1.91 (1.32-3.57) K/mm3 [place] # (Auto) 0.63 (0.30-0.82) K/mm3 Eos # (Auto) 0.46 (0.04-0.54) K/mm3 Baso # (Auto) 0.02 (0.01-0.08) K/mm3 PT (9.7-12.0) SECONDS INR Sodium 142 (136-145) mEq/L Potassium 4.2 (3.5-5.1) mEq/L Chloride 106 (98-107) mEq/L Carbon Dioxide 27 (21-32) mEq/L Anion Gap 13.2 (5-15) BUN 15 (7-18) mg/dL Creatinine 1.2 (0.7-1.3) mg/dL Est Cr Clr Drug Dosing 96.44 mL/min Estimated GFR (MDRD) > 60 (>60) mL/min BUN/Creatinine Ratio 12.5 L (14-18) Glucose 107 H (74-106) mg/dL Calcium 8.4 L (8.5-10.1) mg/dL Magnesium 2.0 (1.8-2.4) mg/dl Total Bilirubin 0.5 (0.2-1.0) mg/dL AST 14 L (15-37) U/L ALT 31 (16-63) U/L Alkaline Phosphatase 67 (46-116) U/L Total Protein 6.5 (6.4-8.2) g/dl Albumin 3.1 L (3.4-5.0) g/dl Globulin 3.4 gm/dL Albumin/Globulin Ratio 0.9 L (1-2) TSH 3rd Generation (0.358-3.74) uIU/mL Urine Color (Yellow) Urine Appearance (Clear) Urine pH (5.0-8.0) Ur Specific [place] (1.005-1.030) Urine Protein (Negative) Urine Glucose (UA) (Negative) Urine Ketones (Negative) Urine Occult Blood (Negative) Urine Nitrite (Negative) Urine Bilirubin (Negative) Urine Urobilinogen (0.2-1.0) Ur Leukocyte Esterase (Negative) Salicylates 2.1 L (2.8-20) mg/dL Urine Opiates Screen (QUJCTF=850) Ur Buprenorphine Scrn (CUTOFF=10) Ur Oxycodone Screen (FRW5OW=305) Urine Methadone Screen (QGM4CO=698) Ur Propoxyphene Screen (ISXKHO=181) Acetaminophen (10-30) ug/mL Ur Barbiturates Screen (LGAWIK=059) Ur Tricyclics Screen (CXVNIO=556) Ur Phencyclidine Scrn (CUTOFF=25) Ur Amphetamine Screen (WCSVDE=891) U Methamphetamines Scrn (KEJFDP=123) U Benzodiazepines Scrn (DIZFOP=095) U Cocaine Metab Screen (YGMEMA=705) U Marijuana (THC) Screen (CUTOFF=50) Ethyl Alcohol (0.00) gm% Med Orders - Current: Current Medications Enoxaparin Sodium (Lovenox) 40 mg SUBCUT DAILY [facility] Last Admin: 08/22/19 09:58 Dose: 40 mg Dextrose/Sodium Chloride (Dextrose 5%-1/2 Ns) 1,000 mls @ 125 mls/hr IV ASDIRECTED [facility] Last Admin: 08/22/19 09:58 Dose: 125 mls/hr - Exam Quality Assessment: No: Supplemental Oxygen General: Sedated Neck: Supple Lungs: Clear to Auscultation, Normal Respiratory Effort Cardiovascular: Regular Rate, Regular Rhythm GI/Abdominal Exam: Normal Bowel Sounds, Soft, Non-Tender, No Organomegaly, No Distention, No Abnormal Bruit, No Mass, Pelvis Stable Extremities: Normal Inspection, Normal Range of Motion, Non-Tender, No Pedal Edema, Normal Capillary Refill Skin: Warm, Dry, Intact Sepsis Event Note - Evaluation Sepsis Screening Result: No Definite Risk - Focused Exam Vital Signs: Vital Signs Temp Resp BP Pulse Ox Pulse Ox 08/22/19 10:23 97 08/22/19 08:00 98.2 F 20 119/75 96 08/22/19 04:00 97.8 F 16 103/60 97 08/22/19 00:00 98.3 F 16 111/84 92 L Date Exam was Performed: 08/22/19 Time Exam was Performed: 12:42 - Problem List Review Problem List Initiated/Reviewed/Updated: Yes - My Orders Last 24 Hours: My Active Orders 08/21/19 22:00 One To One Therapy [BH] Routine 08/21/19 22:07 Oxygen Therapy [RC] .PRN Up With Assistance [RC] ASDIRECTED VTE/DVT Education [RC] Vital Signs [RC] Q4HR Resuscitation Status Routine 08/21/19 22:15 Dextrose 5%-0.45% NaCl [Dextrose 5%-1/2 NS] 1,000 ml IV ASDIRECTED 08/22/19 09:00 Enoxaparin [Lovenox] 40 mg SUBCUT DAILY 08/22/19 Breakfast Nothing per Oral Now Diet [DIET] - Plan Plan:: Overdose of clonazepam, Lexapro, and trazodone in an apparent suicide attempt * Patient stated that he took the medication in a suicide attempt * Poison control consulted * Dr. Win from [facility] in [place] was consulted in the emergency department * Patient significantly sedated but is maintaining airway and able to swallow Plan * Admit to ICU with one-on-one nursing * Continuous pulse ox and continue telemetry * Clear fluids and increased to a regular diet when more awake * D5 half-normal saline at 125 mL/h * CBC, CMP, mag in the morning * Disposition: Plan transfer to psychiatric unit as soon as he is medically stable * CODE STATUS full code * VTE prophylaxis Lovenox
[2019-08-22] MEDS ORDERED: Dextrose 5%-0.45% NaCl 1,000 ML IV SCH (20:15)
[2019-08-22] MEDS ORDERED: Ondansetron 4 MG/2 ML SDV IVPUSH PRN (20:23)
[2019-08-23] MEDS ORDERED: Benzocaine/Cetylpyridinium/Menthol Lozenge MUCMEM PRN (02:40)
[2019-08-23] MEDS ORDERED: Magnesium Hydroxide 400 MG/5 ML Susp 30 ML Cup PO ONE (06:00)
[2019-08-23 09:31] VITALS: BP 115/67; PULSE 76
[2019-08-23] MEDS: Enoxaparin 40 MG/0.4 ML Syringe SUBCUT SCH (10:21)
--- NOTE | 2019-08-23 12:59 | PCM.DCSUM1 ---
Discharge Summary - Hospital Course HPI Initial Comments: 44-year-old male presented to the emergency department via [facility] with suicidal ideation. When I interviewed the patient he was sedated and I was unable to get a history. Therefore, history was obtained through the emergency department and [facility] department notes. Patient has a long history of depression. He was seen on August 14, 2019 in the emergency department and started on Lexapro 10 mg daily. Patient followed up in the emergency department 2 days ago for his depression at that time voiced no concerns of suicidal ideation. Apparently patient took 7 or 8 Lexapro, over 20 Klonopin 2 mg and 30 trazodone 50 mg in an attempt to end his life. Per poison control patient was kept in the emergency department for 4 hours for monitoring. Patient's condition was discussed with psychiatry at [facility] in [place], Dr. Win who felt he should be followed overnight for respiratory depression. Urine drug screen showed positive benzodiazepines and a blood alcohol level of 0.01. The remainder of the labs were normal. EKG showed no significant abnormalities. Diagnosis: Stroke: No - Discharge Data Discharge Date: 08/23/19 (Admit date: 08/21/19) Discharge Disposition: DC/Tfer to Psych Hosp/Unit 65 Condition: Stable - Referral to Home Health Primary Care Physician: Linda Castano NP - Discharge Diagnosis/Problem(s) (1) Suicide attempt by drug overdose SNOMED Code(s): 19728032, 88365166 ICD Code: T50.902A - POISONING BY UNSP DRUG/MEDS/BIOL SUBST, SELF-HARM, INIT Status: Acute Priority: High Current Visit: Yes (2) Anxiety and depression SNOMED Code(s): 180480675 ICD Code: F41.9 - ANXIETY DISORDER, UNSPECIFIED; F32.9 - MAJOR DEPRESSIVE DISORDER, SINGLE EPISODE, UNSPECIFIED Status: Chronic Priority: High Current Visit: Yes (3) GERD (gastroesophageal reflux disease) SNOMED Code(s): 467690195 ICD Code: K21.9 - GASTRO-ESOPHAGEAL REFLUX DISEASE WITHOUT ESOPHAGITIS Status: Chronic Priority: Low Current Visit: No Qualifiers: Esophagitis presence: esophagitis presence not specified Qualified Code(s) : K21.9 - Gastro-esophageal reflux disease without esophagitis (4) Pyloric stenosis SNOMED Code(s): 572342076 ICD Code: K31.1 - ADULT HYPERTROPHIC PYLORIC STENOSIS Status: Chronic Priority: Low Current Visit: No (5) Diverticulosis SNOMED Code(s): 509651357 ICD Code: K57.90 - DVRTCLOS OF INTEST, PART UNSP, W/O PERF OR ABSCESS W/O BLEED Status: Chronic Priority: Low Current Visit: No (6) History of renal stone SNOMED Code(s): 060576927 ICD Code: Z87.442 - PERSONAL HISTORY OF URINARY CALCULI Status: Chronic Priority: Low Current Visit: No - Patient Summary/Data Labs Pending at D/C: None Hospital Course: Rohit was admitted to the ICU after a suicide attempt by overdosing on medications including clonazepam, Lexapro, and trazodone. Poison control was contacted by the ED provider. They were apparently not too concerned about the patient having worsening symptoms, however Dr. Win, psychiatrist at [facility] in [place] wanted the patient to be observed overnight prior to acceptance due to concerns of respiratory depression. Rohit has had a relatively uneventful hospital stay and his labs and vital signs remained stable. He was held an extra day due to continued sedation and to ensure all medications would be essentially eliminated from the patient's system. He was downgraded to MedSurg status and suicide precautions were in place with a 1:1 monitor. He received Lovenox for VTE prophylaxis. In reviewing the patient's notes there have been many events leading up to this. The patient has been seen in our emergency room 3 times the week prior with concerns over anxiety and depression. He does have a significant history of anxiety and depression. We were provided with a note from the recruiting assistant's office which is testimony by what appears to be a friend of the family who stated many concerning events and comments the patient has made which led up to this hospitalization. He reportedly stated he was going to end his life multiple times. He did tell Radiology Technician's office when they found him that he was not going to be around by the end of the week. He also admitted to the providers that he took these pills in a suicide attempt. Because of all this, a 24 hour hold was placed on the patient and ultimately a full committal was done. This morning, report was given to [facility] psychiatric nurse practitioner who requested records and a copy of our hold and committal. Patient does deny suicidal thoughts at this time however he is quite upset that he is going to be transferred to a psychiatric facility. [facility] psychiatric services eventually accepted the patient. He will be transported there via the [facility]. - Patient Instructions Diet: Usual Diet as Tolerated Activity: As Tolerated Showering/Bathing: May Shower - Discharge Plan *PRESCRIPTION DRUG MONITORING PROGRAM REVIEWED*: No *COPY OF PRESCRIPTION DRUG MONITORING REPORT IN PATIENT BHAVANA: No Home Medications: Home Meds Escitalopram [Lexapro] 10 mg PO DAILY #30 tab 08/14/19 [Rx] ClonazePAM [KlonoPIN] 2 mg PO ASDIRECTED #36 tablet 08/19/19 [Rx] Oxygen Therapy Mode: Room Air Forms: ED Department Discharge Referrals: Linda Castano NP [Primary Care Provider] - - Discharge Summary/Plan Comment DC Time >30 min.: Yes (60 minutes ) - General Info Date of Service: 08/23/19 Admission Dx/Problem (Free Text: Admission Diagnosis/Problem Admission Diagnosis/Problem Drug overdose Functional Status: Reports: Pain Controlled, Tolerating Diet, Ambulating, Urinating. Denies: New Symptoms - Review of Systems General: Reports: Fatigue. Denies: Fever, Weakness, Malaise, Chills HEENT: Reports: No Symptoms. Denies: Headaches, Sore Throat Pulmonary: Reports: No Symptoms. Denies: Shortness of Breath, Cough, Sputum, Wheezing Cardiovascular: Reports: No Symptoms. Denies: Chest Pain Gastrointestinal: Reports: No Symptoms. Denies: Abdominal Pain, Constipation, Diarrhea, Nausea, Vomiting Genitourinary: Reports: No Symptoms Musculoskeletal: Reports: No Symptoms Skin: Reports: No Symptoms Neurological: Reports: No Symptoms Psychiatric: Reports: Depression, Anxiety, Agitation (at times ). Denies: Hallucinations, Suicidal Ideation, Homicidal Ideation - Patient Data Vitals - Most Recent: Last Vital Signs Temp 98.1 F 08/23/19 09:20 Pulse 76 08/23/19 09:20 Resp 20 08/23/19 09:20 BP 115/67 08/23/19 09:20 Pulse Ox 93 L 08/23/19 09:20 Weight - Most Recent: 289 lb 6.4 oz I&O - Last 24 hours: Intake & Output 08/22/19 08/23/19 08/23/19 22:59 06:59 14:59 Intake Total 1458 600 Output Total 800 Balance 658 600 Med Orders - Current: Current Medications Benzocaine/Menthol (Cepacol Sore Throat) 1 lozenge MUCMEM Q2HR PRN PRN Reason: Cough Enoxaparin Sodium (Lovenox) 40 mg SUBCUT DAILY EL Last Admin: 08/23/19 10:21 Dose: Not Given Ondansetron HCl (Zofran) 4 mg IVPUSH Q4H PRN PRN Reason: Nausea Last Admin: 08/22/19 20:53 Dose: 4 mg Discontinued Medications Dextrose/Sodium Chloride (Dextrose 5%-1/2 Ns) 1,000 mls @ 125 mls/hr IV ASDIRECTED EL Last Infusion: 08/22/19 20:30 Dose: 50 mls/hr Dextrose/Sodium Chloride (Dextrose 5%-1/2 Ns) 1,000 mls @ 50 mls/hr IV ASDIRECTED EL Magnesium Hydroxide (Milk Of Magnesia) 30 ml PO ONETIME ONE Stop: 08/23/19 06:01 Last Admin: 08/23/19 06:07 Dose: Not Given - Exam Quality Assessment: Reports: DVT Prophylaxis. Denies: Supplemental Oxygen General: Reports: Alert, Oriented, Cooperative, No Acute Distress HEENT: Reports: Pupils Equal, Pupils Reactive, Mucous Membr. Moist/[place] Neck: Reports: Supple, Trachea Midline Lungs: Reports: Clear to Auscultation, Normal Respiratory Effort Cardiovascular: Reports: Regular Rate, Regular Rhythm GI/Abdominal Exam: Normal Bowel Sounds, Soft, Non-Tender, No Distention (Male) Exam: Deferred Rectal (Males) Exam: Deferred Back Exam: Reports: Normal Inspection, Full Range of Motion Extremities: Normal Inspection, Normal Range of Motion, Non-Tender, No Pedal Edema, Normal Capillary Refill Skin: Reports: Warm, Dry, Intact Neurological: Reports: No New Focal Deficit Psy/Mental Status: Reports: Alert
== END 2019-08-23 14:00 | DRG 918 ==
LOC: JD.ED 16:13 → JD.ICU 20:59 → JD.MS 08-22 21:49
PROVIDERS: ADMIT Family Medicine; ATTEND Family Medicine
DX: T43.222A Poisoning by selective serotonin reuptake inhibitors, intentional self-harm, initial encounter (principal); K31.1 Adult hypertrophic pyloric stenosis; T42.4X2A Poisoning by benzodiazepines, intentional self-harm, initial encounter; K21.9 Gastro-esophageal reflux disease without esophagitis; F41.9 Anxiety disorder, unspecified; Z87.442 Personal history of urinary calculi; F32.9 Major depressive disorder, single episode, unspecified; E66.9 Obesity, unspecified; K57.90 Diverticulosis of intestine, part unspecified, without perforation or abscess without bleeding; G93.89 Other specified disorders of brain; Z88.5 Allergy status to narcotic agent; Z79.899 Other long term (current) drug therapy; Z68.35 Body mass index [BMI] 35.0-35.9, adult
CPT/HCPCS: 36415; 80053; 80306; 80307; 81003; 83735; 84443; 85025; 85610; 93005; 99222; 99232; 99239; 99283; 99285-25; A9270-GY; J1650; J2405; J7042

== ENCOUNTER 2019-09-04 14:37 | Emergency (ER) | payer SELFPAY ==
[2019-09-04 14:54] VITALS: BP 127/82; PULSE 73
[2019-09-04] MEDS ORDERED: LORazepam 1 MG Tab PO ONE (15:01)
--- NOTE | 2019-09-04 15:06 | EDM.PDOCBH ---
ED HPI GENERAL MEDICAL PROBLEM - General Chief Complaint: Behavioral/Psych Stated Complaint: ANXIETY/DEPRESSION Time Seen by Provider: 09/04/19 15:01 Source of Information: Reports: Patient History Limitations: Reports: No Limitations - History of Present Illness INITIAL COMMENTS - FREE TEXT/NARRATIVE: 44-year-old male presents to the ED from severe generalized anxiety with panic attacks. He states this is not necessarily new for him but certainly has been aggravated by recent changes in medication. Patient states last week he was taken off his Wellbutrin which he been on for greater than a year and changed to Lexapro 10 mg once daily. He states for the last 3 days he is hardly been able to eat he gets constant chest pains pressure in his throat shortness of breath and is unable to sleep. He feels restless and agitated. Denies suicidal ideation. He has taken clonidine 0.3 mg at bedtime and still unable to sleep. He does not use any alcohol or street drugs. Denies use of marijuana. Onset: Gradual Onset Date: 08/31/19 Duration: Day(s):, Getting Worse Location: Reports: Generalized (Unable to sleep. Feels agitated restless. Unable to eat. Feels extremely exhausted. Recurrent sharp stabbing left anterior chest pains shortness of breath sometimes pressure in his neck and throat associated with a strong sense of doom.) Quality: Reports: Other Severity: Severe (Panic attack) Improves with: Reports: None Worsens with: Reports: None Context: Reports: Other (Chronic problems with generalized anxiety disorder. Worsens recent change in medications.). Denies: Activity, Exercise, Lifting, Sick Contact, Trauma Associated Symptoms: Reports: Loss of Appetite, Malaise, Nausea/Vomiting, Other. Denies: Confusion, Chest Pain, Cough, cough w sputum, Diaphoresis, Fever /Chills, Headaches, Rash, Seizure, Shortness of Breath (Nausea), Syncope Treatments LEGAL RECRUITER: Reports: Other (see below) (No diarrhea) - Related Data Allergies Allergy/AdvReac Type Severity Reaction Status Date / Time morphine Allergy Mild Hives Verified 09/04/19 14:54 Home Meds: Home Meds ALPRAZolam [Xanax] 2 mg PO ASDIRECTED #40 tablet 09/04/19 [Rx] Amitriptyline [Elavil] 0 mg PO DAILY 09/04/19 [History] cloNIDine [Catapres] 0 mg PO BEDTIME 09/04/19 [History] Past Medical History - Past Health History Medical/Surgical History: Denies Medical/Surgical History Gastrointestinal History: Reports: Diverticulosis, GERD, Hiatal Hernia Other Gastrointestinal History: Pyloric stenosis Genitourinary History: Reports: Renal Calculus, Other (See Below) Musculoskeletal History: Reports: None Psychiatric History: Reports: Anxiety, Depression Endocrine/Metabolic History: Reports: Obesity/BMI 30+ - Past Surgical History GI Surgical History: Reports: Hernia, Inguinal, Other (See Below) Male Surgical History: Reports: Lithotripsy (ESWL) Musculoskeletal Surgical History: Reports: Other (See Below) Social & Family History - Family History Family Medical History: Noncontributory - Tobacco Use Smoking Status *Q: Never Smoker Second Hand Smoke Exposure: No - Caffeine Use Caffeine Use: Reports: None - Recreational Drug Use Recreational Drug Use: No - Living Situation & Occupation Living situation: Reports: Single, with Family Occupation: Employed ([employer]) ED ROS GENERAL - Review of Systems Review Of Systems: See Below Constitutional: Reports: Malaise, Fatigue (Is exhausted.), Decreased Appetite. Denies: Fever, Chills HEENT: Reports: No Symptoms Respiratory: Reports: Shortness of Breath Cardiovascular: Reports: Chest Pain, Dyspnea on Exertion, Lightheadedness, Palpitations. Denies: Blood Pressure Problem (Recurrent sharp stabbing left anterior chest pains), Claudication, Edema, Orthopnea Endocrine: Reports: Fatigue GI/Abdominal: Reports: Decreased Appetite : Reports: No Symptoms Musculoskeletal: Reports: No Symptoms Skin: Reports: No Symptoms Neurological: Reports: Dizziness, Weakness (Neurolysed sense of weakness) Psychiatric: Reports: Anxiety (Advair with panic attack.). Denies: Hallucinations, Homicidal Ideation, Mood Lability, Suicidal Ideation Hematologic/Lymphatic: Reports: No Symptoms Immunologic: Reports: No Symptoms ED EXAM, BEHAVIORAL HEALTH - Physical Exam Exam: See Below Exam Limited By: No Limitations General Appearance: Alert, Anxious (Very anxious.), Moderate Distress, Other ( Temperature is 36.6 with a heart rate of 73. Respiratory of 18 BP 127/82 O2 sats 97% on room air) Eye Exam: Bilateral Eye: Normal Inspection, PERRL Ears: Normal TMs Throat/Mouth: Normal Inspection, Normal Lips, Normal Oropharynx Head: Atraumatic, Normocephalic Neck: Normal Inspection, Supple, Non-Tender, Full Range of Motion. No: Lymphadenopathy (L), Lymphadenopathy (R) Respiratory/Chest: No Respiratory Distress, Lungs Clear, Normal Breath Sounds, No Accessory Muscle Use Cardiovascular: Normal Peripheral Pulses, Regular Rate, Rhythm, No Edema, No Gallop, No Murmur, No Rub GI/Abdominal: Normal Bowel Sounds, Soft, Non-Tender, No Organomegaly, No Mass, Pelvis Stable Extremities: Normal Inspection, Normal Range of Motion, Non-Tender, No Pedal Edema Neurological: Alert, Normal Mood/Affect, CN II-XII Intact, Normal Cognition, No Motor/Sensory Deficits, Oriented x 3 COURSE, BEHAVIORAL HEALTH COMP - Course Vital Signs: Last Vital Signs Temp 36.6 C 09/04/19 14:51 Pulse 73 09/04/19 14:51 Resp 18 09/04/19 14:51 BP 127/82 09/04/19 14:51 Pulse Ox 97 09/04/19 14:51 Re-Assessment/Re-Exam: 44-year-old male attends the ED with severe anxiety disorder. Patient states he suffers from generalized anxiety disorder for many years. As of recent he has had medication change i.e. Wellbutrin was discontinued and replaced with Lexapro 10 mg once daily. He states since medication change he is feeling increasingly anxious with chest pain shortness of breath pressure in his neck and throat with associated sense of doom. Not able to eat. He is unable to sleep and feels exhausted. He is taking 0.3 mg of clonidine at bedtime which normally would allow him to sleep quite well and he states it is doing nothing. It is difficult therefore to state whether part of this is withdrawal from Wellbutrin and or anxiety produced by introduction of new antidepressant medication which can happen as well. Decision made to place him on Xanax 1 mg in the morning and 1 in the mid afternoon such as 2:00 if needed for anxiety relief and 2 mg at bedtime to help him sleep. Prescription written for 40 tablets and in the meantime he needs to follow-up with his primary care provider. Due to the holiday there was no drugstores open and he was therefore given Ativan 2 mg through the ED. The prescription was written through the [email or web address] machine for 10 tablets of the 1 mg strength of Ativan that can be taken 1 every 4-6 hours as necessary for anxiety relief and 2 mg at bedtime to help sleep tonight. Departure - Departure Time of Disposition: 15:02 Disposition: Home, Self-Care 01 Condition: Fair Clinical Impression: Generalized anxiety disorder with panic attacks - Discharge Information *PRESCRIPTION DRUG MONITORING PROGRAM REVIEWED*: Not Applicable *COPY OF PRESCRIPTION DRUG MONITORING REPORT IN PATIENT BHAVANA: Not Applicable Prescriptions: ALPRAZolam [Xanax] 2 mg PO ASDIRECTED #40 tablet Instructions: Generalized Anxiety Disorder, Adult Referrals: Linda Castano NP [Primary Care Provider] - Additional Instructions: Evaluation in the emergency room today in regards to severe generalized anxiety disorder with panic attacks. This is been a chronic problem for you but has worsened since recent change in antidepressant medication with the discontinuation of Wellbutrin and the addition of new medication Lexapro. Is not uncommon with a change in these medications to have increased anxiety develop for the first 7 to 14 days of treatment with the newer medication. Can continue your clonidine at bedtime with the addition of Xanax which is strictly for anxiety relief. Suggest one half of a 2 mg tablet in the morning and another half tablet in the mid afternoon if needed for anxiety relief and a full tablet at bedtime to help sleep. Suggest follow-up with your personal care provider sometime in the next 7 to 10 days or sooner if not able to sleep. Due to the holiday today the drug stores are close. I have therefore written for 10 tablets of Ativan 1 mg strength from the [employer] machine. You were given 2 mg in the ED which may cause you to be drowsy and sleepy within the next hour or 2. Suggest 2 mg at bedtime to help sleep as well. You could take 1 mg tomorrow morning when you awaken for anxiety relief until you can fill your prescription for Xanax. Sepsis Event Note - Evaluation Sepsis Screening Result: No Definite Risk - Focused Exam Vital Signs: Vital Signs Temp Pulse Resp BP Pulse Ox 09/04/19 14:51 36.6 C 73 18 127/82 97 Date Exam was Performed: 09/04/19 Time Exam was Performed: 15:01
== END 2019-09-04 15:35 | disposition home or self-care (01) ==
LOC: JD.ED 14:37
DX: F41.1 Generalized anxiety disorder (principal); F41.0 Panic disorder [episodic paroxysmal anxiety]; F41.9 Anxiety disorder, unspecified; F32.9 Major depressive disorder, single episode, unspecified; E66.9 Obesity, unspecified; Z68.34 Body mass index [BMI] 34.0-34.9, adult; Z88.5 Allergy status to narcotic agent; Z79.899 Other long term (current) drug therapy
CPT/HCPCS: 99283; A9270

== ENCOUNTER 2019-09-08 13:45 | Inpatient (IN) | payer SELFPAY ==
--- NOTE | 2019-09-08 14:01 | EDM.PDOCBH ---
ED HPI GENERAL MEDICAL PROBLEM - General Chief Complaint: Behavioral/Psych Stated Complaint: POSS OVERDOSE Time Seen by Provider: 09/08/19 13:52 Source of Information: Reports: Patient, Old Records, RN Notes Reviewed History Limitations: Reports: Altered Mental Status (pt is responsive to painful stimuli only at this time.) - History of Present Illness INITIAL COMMENTS - FREE TEXT/NARRATIVE: The patient is a 44-year-old male who presents to the ED for an overdose. The patient is responsive to painful stimuli only, he is not able to provide us with history. Review of his old charts show that the patient has had multiple possible overdoses and or suicide attempts,, 1 of which needed a hospitalization in our hospital on August 20. The patient's friend that brought him in, but the pill bottle that the patient took, and it was decided that the patient took roughly 30 to 40 tablets of 0.3 mg clonidine, roughly 1 hour prior to arrival to the ER. This equates to roughly 9 to 12 mg of clonidine. Patient is still breathing on his own, O2 sats are 96% on room air, heart rate is 56, the nurse was able to get him to respond to her with a sternal rub, and states that his speech was very slurred, and he did not know where he was. - Related Data Allergies Allergy/AdvReac Type Severity Reaction Status Date / Time morphine Allergy Mild Hives Verified 09/04/19 14:54 Home Meds: Home Meds ALPRAZolam [Xanax] 2 mg PO ASDIRECTED #40 tablet 09/04/19 [Rx] Amitriptyline [Elavil] 0 mg PO DAILY 09/04/19 [History] cloNIDine [Catapres] 0 mg PO BEDTIME 09/04/19 [History] Past Medical History Gastrointestinal History: Reports: Diverticulosis, GERD, Hiatal Hernia Other Gastrointestinal History: Pyloric stenosis Genitourinary History: Reports: Renal Calculus, Other (See Below) Psychiatric History: Reports: Anxiety, Depression, Suicide Attempt Endocrine/Metabolic History: Reports: Obesity/BMI 30+ - Past Surgical History GI Surgical History: Reports: Hernia, Inguinal, Other (See Below) Male Surgical History: Reports: Lithotripsy (ESWL) Musculoskeletal Surgical History: Reports: Other (See Below) Social & Family History - Family History Family Medical History: Noncontributory - Caffeine Use Caffeine Use: Reports: None - Living Situation & Occupation Living situation: Reports: Single, with Family Occupation: Employed ([employer]) ED ROS GENERAL - Review of Systems Review Of Systems: Unable To Obtain Reason Not Obtained: pt is responsive to painful stimuli only ED EXAM, BEHAVIORAL HEALTH - Physical Exam Exam: See Below Exam Limited By: Altered Mental Status (responsive to painful stimuli only at initial exam) General Appearance: Alert, WD/WN, No Apparent Distress Eye Exam: Bilateral Eye: PERRL Throat/Mouth: Normal Inspection, Normal Lips, Normal Teeth, Normal Gums, Normal Oropharynx, Normal Voice, No Airway Compromise Head: Atraumatic, Normocephalic Neck: Normal Inspection Respiratory/Chest: No Respiratory Distress, Lungs Clear, Normal Breath Sounds, No Accessory Muscle Use, Chest Non-Tender Cardiovascular: Normal Peripheral Pulses, Regular Rate, Rhythm, No Murmur GI/Abdominal: Normal Bowel Sounds, Soft, Non-Tender, No Distention, No Mass. No : Guarding Extremities: Normal Inspection, Normal Capillary Refill Neurological: Withdraws to Pain Skin Exam: Warm, Dry, Intact, Normal color, No rash EKG INTERPRETATION EKG Date: 09/08/19 Time: 14:04 Rhythm: NSR Rate (Beats/Min): 55 [place]: Normal P-Wave: Present QRS: Normal ST-T: Normal QT: Normal EKG Interpretation Comments: No obvious ischemia or acute ST changes noted, reviewed by myself and Dr. Montez. QT is WNL, no other obvious abnormalities appreciated. COURSE, BEHAVIORAL HEALTH COMP - Course Vital Signs: Last Vital Signs Temp 97.1 F 09/08/19 13:49 Pulse 55 L 09/08/19 13:49 Resp 20 09/08/19 13:49 BP 143/94 H 09/08/19 13:49 Pulse Ox 97 09/08/19 13:49 Orders, Labs, Meds: Active Orders 24 hr Category Date Time Status EKG Documentation Completion [RC] STAT Care 09/08/19 13:55 Ordered Gupta Catheter Insertion [Insert Urinary Catheter] [OM. Care 09/08/19 14:01 Ordered PC] Stat Urinary Catheter Assessment [RC] ASDIRECTED Care 09/08/19 14:02 Ordered ABG [BLOOD GAS ARTERIAL] [BG] Stat Lab 09/08/19 15:33 Ordered Sodium Chloride 0.9% [Normal Saline] 1,000 ml Med 09/08/19 14:02 Ordered IV ONETIME Medication Orders Sodium Chloride (Normal Saline) 1,000 mls @ 500 mls/hr IV ONETIME ONE Stop: 09/08/19 16:01 Last Admin: 09/08/19 14:06 Dose: 500 mls/hr Laboratory Tests 09/08/19 09/08/19 09/08/19 Range/Units 13:49 13:49 13:49 WBC 6.50 (4.23-9.07) K/mm3 RBC 5.08 (4.63-6.08) M/mm3 Hgb 14.0 (13.7-17.5) gm/dl Hct 43.1 (40.1-51.0) % MCV 84.8 (79.0-92.2) fl MCH 27.6 (25.7-32.2) pg MCHC 32.5 (32.2-35.5) g/dl RDW Std Deviation 42.4 (35.1-43.9) fL Plt Count 265 (163-337) K/mm3 MPV 10.6 (9.4-12.3) fl Neutrophils % (Manual) 59 (40-60) % Band Neutrophils % 0 (0-10) % Lymphocytes % (Manual) 26 (20-40) % Atypical Lymphs % 0 % Monocytes % (Manual) 5 (2-10) % Eosinophils % (Manual) 8 H (0.8-7.0) % Basophils % (Manual) 2 H (0.2-1.2) Platelet Estimate Adequate Plt Morphology Comment Normal RBC Morph Comment Normal Sodium 142 (136-145) mEq/L Potassium 4.0 (3.5-5.1) mEq/L Chloride 108 H (98-107) mEq/L Carbon Dioxide 23 (21-32) mEq/L Anion Gap 15.0 (5-15) BUN 12 (7-18) mg/dL Creatinine 1.2 (0.7-1.3) mg/dL Est Cr Clr Drug Dosing 86.22 mL/min Estimated GFR (MDRD) > 60 (>60) mL/min BUN/Creatinine Ratio 10.0 L (14-18) Glucose 74 (74-106) mg/dL Calcium 8.8 (8.5-10.1) mg/dL Total Bilirubin 0.2 (0.2-1.0) mg/dL AST 12 L (15-37) U/L ALT 30 (16-63) U/L Alkaline Phosphatase 92 (46-116) U/L Total Protein 7.0 (6.4-8.2) g/dl Albumin 3.4 (3.4-5.0) g/dl Globulin 3.6 gm/dL Albumin/Globulin Ratio 0.9 L (1-2) TSH 3rd Generation 1.108 (0.358-3.74) uIU/mL Salicylates 2.2 L (2.8-20) mg/dL Urine Opiates Screen (JRIEIB=956) Ur Buprenorphine Scrn (CUTOFF=10) Ur Oxycodone Screen (DND3CG=994) Urine Methadone Screen (ESB5SC=155) Ur Propoxyphene Screen (AIYMJQ=744) Acetaminophen 0 L (10-30) ug/mL Ur Barbiturates Screen (XBMKRH=858) Ur Tricyclics Screen (YCUABZ=419) Ur Phencyclidine Scrn (CUTOFF=25) Ur Amphetamine Screen (PNSSLR=132) U Methamphetamines Scrn (GMMXYZ=372) U Benzodiazepines Scrn (UIRSDZ=856) U Cocaine Metab Screen (XKXKDQ=773) U Marijuana (THC) Screen (CUTOFF=50) Ethyl Alcohol 0.00 (0.00) gm% 09/08/19 Range/Units 14:17 WBC (4.23-9.07) K/mm3 RBC (4.63-6.08) M/mm3 Hgb (13.7-17.5) gm/dl Hct (40.1-51.0) % MCV (79.0-92.2) fl MCH (25.7-32.2) pg MCHC (32.2-35.5) g/dl RDW Std Deviation (35.1-43.9) fL Plt Count (163-337) K/mm3 MPV (9.4-12.3) fl Neutrophils % (Manual) (40-60) % Band Neutrophils % (0-10) % Lymphocytes % (Manual) (20-40) % Atypical Lymphs % % Monocytes % (Manual) (2-10) % Eosinophils % (Manual) (0.8-7.0) % Basophils % (Manual) (0.2-1.2) Platelet Estimate Plt Morphology Comment RBC Morph Comment Sodium (136-145) mEq/L Potassium (3.5-5.1) mEq/L Chloride (98-107) mEq/L Carbon Dioxide (21-32) mEq/L Anion Gap (5-15) BUN (7-18) mg/dL Creatinine (0.7-1.3) mg/dL Est Cr Clr Drug Dosing mL/min Estimated GFR (MDRD) (>60) mL/min BUN/Creatinine Ratio (14-18) Glucose (74-106) mg/dL Calcium (8.5-10.1) mg/dL Total Bilirubin (0.2-1.0) mg/dL AST (15-37) U/L ALT (16-63) U/L Alkaline Phosphatase (46-116) U/L Total Protein (6.4-8.2) g/dl Albumin (3.4-5.0) g/dl Globulin gm/dL Albumin/Globulin Ratio (1-2) TSH 3rd Generation (0.358-3.74) uIU/mL Salicylates (2.8-20) mg/dL Urine Opiates Screen Negative (RLFBZW=059) Ur Buprenorphine Scrn Negative (CUTOFF=10) Ur Oxycodone Screen Negative (JMJ7IZ=146) Urine Methadone Screen Negative (THU6LH=237) Ur Propoxyphene Screen Negative (ONUQMT=951) Acetaminophen (10-30) ug/mL Ur Barbiturates Screen Negative (WKFWME=832) Ur Tricyclics Screen Negative (KGFBKN=941) Ur Phencyclidine Scrn Negative (CUTOFF=25) Ur Amphetamine Screen Negative (RSJBAV=391) U Methamphetamines Scrn Negative (QXBIZD=967) U Benzodiazepines Scrn Presumptive positive H (PHGTOL=074) U Cocaine Metab Screen Negative (EVPILW=488) U Marijuana (THC) Screen Negative (CUTOFF=50) Ethyl Alcohol (0.00) gm% Medications Generic Name Dose Route Start Last Admin Trade Name Freq PRN Reason Stop Dose Admin Sodium Chloride 1,000 mls @ 500 mls/hr 09/08/19 14:02 09/08/19 14:06 Normal Saline IV 09/08/19 16:01 500 mls/hr ONETIME ONE Administration Discharge vs Psych Eval/Treatment:: 09/08/19 14:04 Patient presents to the ED for evaluation of a possible overdose of clonidine 0.3 mg tablets. Psych clearance labs will be obtained, and poison control was contacted in regards to this, they state that the heart rate is within normal limits for this ingestion of clonidine, we can try dose of atropine if the heart rate gets under 40 bpm. If the patient starts to decompensate respiratory sloan, he may need intubation, but to allow him to breathe on his own if he is still able to do so, which he is, his O2 sats are still 95 to 96% on room air. Blood pressure is normal at 141/93 at this time. They also note that we could try a high dose of naloxone to see if this has any effect. We will consult poison control as needed for further guidance, patient will likely need hospital admission, but I do believe that he would benefit from psychiatric inpatient care after he stabilizes medically, As this is likely due to a suicide attempt, however patient is still unresponsive at this time. 09/08/19 14:40 RN responsible for the patient's care, shared with me that the patient's friend thinks that he may have taken some Ativan intermixed with the clonidine as well , this should not tire changer aircraft much, likely make him more sedated, but we will update poison control. 09/08/19 14:54 The patient's friend, the brought him into the ER, states that he did do this in an attempt to end his life, and states he was trying to kill himself, he will likely need hospital admission for medical clearance, but should have a psychiatric hold placed, as friend states this is about the third or fourth time that he is done something like this or has threatened to do this. We will likely try to get him admitted to our hospital for medical clearance, with admission to inpatient psych after he is medically cleared. 09/08/19 15:06 I preliminarily talked with our hospitalist, Dr. Youssef for admission, and she was questioning the thought of activated charcoal and/or an NG tube to pump the gentleman stomach, I did call poison control and ask them about this possibility, they would recommend not doing that to make sure that the patient does not aspirate or get a chemical pneumonitis of sorts. They do state however if the patient deteriorates and needs intubation, you can try it that way as his airway would be protected. 09/08/19 15:[address] Youssef back, and she requested an ABG be done before we transfer the patient to ICU for further management, did put this order in, Dr. Youssef states she will put the orders in for transfer to the unit. The patient is still satting 97% on room air, heart rate is 50 bpm, blood pressure is still okay at this time, in the 140s systolically. Departure - Departure Time of Disposition: 15:35 Disposition: Admitted As Inpatient 66 Condition: Good Clinical Impression: Overdose Qualifiers: Encounter type: initial encounter Injury intent: intentional self-harm Qualified Code(s): T50.902A - Poisoning by unspecified drugs, medicaments and biological substances, intentional self-harm, initial encounter - Discharge Information *PRESCRIPTION DRUG MONITORING PROGRAM REVIEWED*: No *COPY OF PRESCRIPTION DRUG MONITORING REPORT IN PATIENT BHAVANA: No Forms: ED Department Discharge Sepsis Event Note - Focused Exam Vital Signs: Vital Signs Temp Pulse Resp BP Pulse Ox 09/08/19 13:49 97.1 F 55 L 20 143/94 H 97 Date Exam was Performed: 09/08/19 Time Exam was Performed: 15:34 - My Orders Last 24 Hours: My Active Orders 09/08/19 13:55 EKG Documentation Completion [RC] STAT 09/08/19 14:01 Gupta Catheter Insertion [Insert Urinary Catheter] [OM.PC] Stat 09/08/19 14:02 Urinary Catheter Assessment [RC] ASDIRECTED Sodium Chloride 0.9% [Normal Saline] 1,000 ml IV ONETIME 09/08/19 15:33 ABG [BLOOD GAS ARTERIAL] [BG] Stat - Assessment/Plan Last 24 Hours: My Active Orders 09/08/19 13:55 EKG Documentation Completion [RC] STAT 09/08/19 14:01 Gupta Catheter Insertion [Insert Urinary Catheter] [OM.PC] Stat 09/08/19 14:02 Urinary Catheter Assessment [RC] ASDIRECTED Sodium Chloride 0.9% [Normal Saline] 1,000 ml IV ONETIME 09/08/19 15:33 ABG [BLOOD GAS ARTERIAL] [BG] Stat
[2019-09-08] MEDS ORDERED: Sodium Chloride 0.9% 1,000 ML IV ONE (14:02)
[2019-09-08 14:37] LABS: ACETAMINOPHEN 0 ug/mL (10-30)
[2019-09-08] MEDS ORDERED: Ondansetron 4 MG/2 ML SDV IV PRN (15:33)
[2019-09-08] MEDS ORDERED: Naloxone 2 MG/2 ML Syringe IVPUSH ONE (19:21)
--- NOTE | 2019-09-08 19:29 | PCM.HP.2 ---
H&P History of Present Illness - General Date of Service: 09/08/19 Admit Problem/Dx: Admission Diagnosis/Problem Admission Diagnosis/Problem Intentional drug overdose - History of Present Illness Initial Comments - Free Text/Narative: The patient is a 44-year-old male who presents to the ED for an overdose. The patient is responsive to painful stimuli only, he is not able to provide us with history. Review of his old charts show that the patient has had multiple possible overdoses and or suicide attempts,, 1 of which needed a hospitalization in our hospital on August 20. The patient's friend that brought him in, but the pill bottle that the patient took, and it was decided that the patient took roughly 30 to 40 tablets of 0.3 mg clonidine, roughly 1 hour prior to arrival to the ER. This equates to roughly 9 to 12 mg of clonidine. Patient is still breathing on his own, O2 sats are 96% on room air, heart rate is 56, the nurse was able to get him to respond to her with a sternal rub, and states that his speech was very slurred, and he did not know where he was. - Related Data Allergies/Adverse Reactions: Allergies Allergy/AdvReac Type Severity Reaction Status Date / Time morphine Allergy Mild Hives Verified 09/04/19 14:54 Home Medications: Home Meds ALPRAZolam [Xanax] 2 mg PO ASDIRECTED #40 tablet 09/04/19 [Rx] Amitriptyline [Elavil] 0 mg PO DAILY 09/04/19 [History] cloNIDine [Catapres] 0 mg PO BEDTIME 09/04/19 [History] Past Medical History - Past Health History Medical/Surgical History: Denies Medical/Surgical History Gastrointestinal History: Reports: Diverticulosis, GERD, Hiatal Hernia Other Gastrointestinal History: Pyloric stenosis Genitourinary History: Reports: Renal Calculus, Other (See Below) Psychiatric History: Reports: Anxiety, Depression, Suicide Attempt Endocrine/Metabolic History: Reports: Obesity/BMI 30+ - Past Surgical History GI Surgical History: Reports: Hernia, Inguinal, Other (See Below) Male Surgical History: Reports: Lithotripsy (ESWL) Musculoskeletal Surgical History: Reports: Other (See Below) Social & Family History - Family History Family Medical History: Noncontributory - Caffeine Use Caffeine Use: Reports: None - Living Situation & Occupation Living situation: Reports: Single, with Family Occupation: Employed ([employer]) H&P Review of Systems - Review of Systems: Review Of Systems: Unable To Obtain Reason Not Obtained: obtunded Exam - Exam Exam: See Below - Vital Signs Vital Signs: Last Vital Signs Temp 97.1 F 09/08/19 13:49 Pulse 51 L 09/08/19 18:16 Resp 20 09/08/19 18:16 BP 129/76 09/08/19 18:15 Pulse Ox 97 09/08/19 18:16 Weight: 90.718 kg - Exam Physical Exam Comments:: Exam Limited By: Altered Mental Status (responsive to painful stimuli only at initial exam) General Appearance: Alert, WD/WN, No Apparent Distress Eye Exam: Bilateral Eye: PERRL Throat/Mouth: Normal Inspection, Normal Lips, Normal Teeth, Normal Gums, Normal Oropharynx, Normal Voice, No Airway Compromise Head: Atraumatic, Normocephalic Neck: Normal Inspection Respiratory/Chest: No Respiratory Distress, Lungs Clear, Normal Breath Sounds, No Accessory Muscle Use, Chest Non-Tender Cardiovascular: Normal Peripheral Pulses, Regular Rate, Rhythm, No Murmur GI/Abdominal: Normal Bowel Sounds, Soft, Non-Tender, No Distention, No Mass. No : Guarding Extremities: Normal Inspection, Normal Capillary Refill Neurological: Withdraws to Pain Skin Exam: Warm, Dry, Intact, Normal color, No rash - Patient Data Result Diagrams: 09/09/19 05:29 09/09/19 05:29 Sepsis Event Note - Evaluation Sepsis Screening Result: No Definite Risk - Problem List (1) Intentional drug overdose SNOMED Code(s): 51011239 ICD Code: T50.902A - POISONING BY UNSP DRUG/MEDS/BIOL SUBST, SELF-HARM, INIT Status: Acute Current Visit: Yes (2) Suicide attempt by drug overdose SNOMED Code(s): 09633131, 64534427 ICD Code: T50.902A - POISONING BY UNSP DRUG/MEDS/BIOL SUBST, SELF-HARM, INIT Status: Acute Priority: High Current Visit: No (3) Major depressive disorder SNOMED Code(s): 378810150 ICD Code: F32.9 - MAJOR DEPRESSIVE DISORDER, SINGLE EPISODE, UNSPECIFIED Status: Acute Current Visit: Yes (4) Anxiety SNOMED Code(s): 16437145 ICD Code: F41.9 - ANXIETY DISORDER, UNSPECIFIED Status: Chronic Priority : High Current Visit: No (5) Chronically on benzodiazepine therapy SNOMED Code(s): 653418969 ICD Code: Z79.899 - OTHER [facility] (CURRENT) DRUG THERAPY Status: Acute Current Visit: Yes Problem List Initiated/Reviewed/Updated: Yes Assessment/Plan Comment:: ASSESSMENT Day of admission - Multiple previous attempts, at least 2 documented - Took roughly 30 to 40 tablets of 0.3 mg clonidine, roughly 1 hour prior to arrival to the ER. This equates to roughly 9 to 12 mg of clonidine. - Maintaining airway Intentional drug overdose Suicide attempt by drug overdose Major depressive disorder Anxiety Chronically on benzodiazepine therapy - Narcan x 1 dose - Frequent neuro exams by nursing staff - Consult to psychiatry - Consult social insurance analyst for commitment - LR at 250ml/hr - Follow up with toxicology - 1 to 1 observation by nursing - Suicide precautions PROPHYLAXIS DVT- compression stockings GI- not indicated CODE STATUS: FULL CODE DISPOSITION: Patient will be admitted to ICU for close observation 1:1, will need to be discharged to inpatient psychiatry. - Mortality Measure Prognosis:: Good
[2019-09-08] MEDS: Lactated Ringers 1,000 ML IV SCH (19:59)
[2019-09-09] MEDS: Lactated Ringers 1,000 ML IV SCH ×3 (00:11→20:04)
[2019-09-09] MEDS ORDERED: Haloperidol Lactate 5 MG/ML SDV ONE ×2 (02:28→12:48)
[2019-09-09] MEDS ORDERED: Haloperidol Lactate 5 MG/ML SDV IM ONE ×3 (02:34→14:53)
[2019-09-09] MEDS ORDERED: Albuterol 0.083% 2.5 MG/3 ML Neb Soln ONE (08:55)
[2019-09-09] MEDS ORDERED: Albuterol 0.083% 2.5 MG/3 ML Neb Soln NEB ONE (09:01)
[2019-09-09] MEDS: Haloperidol Lactate 5 MG/ML SDV IM ONE ×2 (10:03→11:34)
[2019-09-09] MEDS: LORazepam 2 MG/ML SDV IM ONE ×2 (10:04→11:33)
[2019-09-09] MEDS: diphenhydrAMINE 50 MG/ML SDV IM ONE ×4 (10:05→16:19)
[2019-09-09] MEDS ORDERED: LORazepam 2 MG/ML SDV IVPUSH PRN (12:23)
--- NOTE | 2019-09-09 12:28 | PCM.PN ---
- General Info Date of Service: 09/09/19 Subjective Update: Patient was transferred to ICU yesterday Upon arrival he was given Narcan Later on in the evening was called by nursing due to aggression--> given Haldol which resolved it (details on nursing notes) - Patient Data Vitals - Most Recent: Last Vital Signs Temp 98.3 F 09/09/19 08:00 Pulse 89 09/09/19 11:00 Resp 18 09/09/19 11:00 BP 117/47 L 09/09/19 11:00 Pulse Ox 89 L 09/09/19 11:00 Weight - Most Recent: 90.718 kg - Exam General: Sedated, Other (Limited due to body habitus) Neck: Trachea Midline Lungs: Decreased Breath Sounds. No: Crackles, Rales, Rhonchi, Rub, Stridor, Wheezing Cardiovascular: Regular Rhythm, Bradycardia. No: Murmurs, Gallops, Rubs GI/Abdominal Exam: Soft, Distended. No: Guarding, Rigid, Rebound Extremities: Normal Inspection, No Pedal Edema, Slow Capillary Refill Peripheral Pulses: 2+: Radial (L), Radial (R) Sepsis Event Note - Evaluation Sepsis Screening Result: No Definite Risk - Problem List & Annotations (1) Intentional drug overdose SNOMED Code(s): 91759335 Code(s): T50.902A - POISONING BY UNSP DRUG/MEDS/BIOL SUBST, SELF-HARM, INIT Status: Acute Current Visit: Yes (2) Suicide attempt by drug overdose SNOMED Code(s): 15092667, 03517622 Code(s): T50.902A - POISONING BY UNSP DRUG/MEDS/BIOL SUBST, SELF-HARM, INIT Status: Acute Priority: High Current Visit: No (3) Major depressive disorder SNOMED Code(s): 337754287 Code(s): F32.9 - MAJOR DEPRESSIVE DISORDER, SINGLE EPISODE, UNSPECIFIED Status: Acute Current Visit: Yes (4) Anxiety SNOMED Code(s): 18534017 Code(s): F41.9 - ANXIETY DISORDER, UNSPECIFIED Status: Chronic Priority: High Current Visit: No (5) Chronically on benzodiazepine therapy SNOMED Code(s): 656929427 Code(s): Z79.899 - OTHER [facility] (CURRENT) DRUG THERAPY Status: Acute Current Visit: Yes (6) Hypomagnesemia SNOMED Code(s): 513101564 Code(s): E83.42 - HYPOMAGNESEMIA Status: Acute Current Visit: Yes (7) Bradycardia, drug induced SNOMED Code(s): 696077717 Code(s): R00.1 - BRADYCARDIA, UNSPECIFIED; T50.905A - ADVERSE EFFECT OF UNSP DRUG/MEDS/BIOL SUBST, INIT Status: Acute Current Visit: Yes - Problem List Review Problem List Initiated/Reviewed/Updated: Yes - Plan Plan:: ASSESSMENT Day of admission - Multiple previous attempts, at least 2 documented - Took roughly 30 to 40 tablets of 0.3 mg clonidine, roughly 1 hour prior to arrival to the ER. This equates to roughly 9 to 12 mg of clonidine. - Poison Control notified amount and level of ingestion by patient, recommendations - Patient HR may Mich down to 40s and pt might get hypotensive. - As long as pt is still perfusion and having good urine output and his creatinine is maintaining WNL then bradycardia is not concerning. - Atropine if needed. - Respiratory depression is a concern, can give high dose naloxone prior to intubation to see if pt responds to that. - Also Recommending IVF and checking salicylates and Tylenol level. - Later on, updated poison control that pt may have taken combination of ativan and clonidine - Given Narcan upon transfer to ICU - Overnight patient became very aggressive, disturbing staff - Nursing note "Pt acting irrational and angry. Not cooperating with staff, yelling and calling names. Pt states he wants "all of this to end" and "why won' t you all just leave me the fuck alone? Just leave me alone". He keeps asking where he will go from here and states he does not want to go back to a psych facility. He requested for medications that will "help me knock out! Load me up." - Pt was made aware that because he is a danger and a threat to himself and possibly others, he has to stay here. He continues to threaten to leave. made aware. - H&P update - Nursing spoke to girlfriend - Patient had been living at his mother's house whom he does not get along with very well, so she invited him to stay with her and he had been, but abruptly left this morning with his belongings. - She found an empty bottle of Alprazolam at her residence which she knows contained anywhere from 22-23 2mg tablets. - He then went to his friend Juan's home where he continued to take more Clonidine, but he was able to prevent him from taking more and brought him to the ED. - Recent admissions - August 13 and , seen in ED for SI and started on Lexapro on August 14, 2019 - August 21, 2019 Brought by police for SI, took multiple medications ( Lexapro, Klonopin and Trazodone) as a suicide attempt. - Psychiatry recommended overnight observation for hypoxemia prior to accepting patients transfer to inpatient psychiatry and he was sent to [facility] inpatient unit on August 23, 2019 09/09/19 - Poison control called for an update. They stated that the Pt should be pass the effects of the Clonidine by now but we still have to watch for Bradycardia and Hypotension. - Mg today 1.6 - BP trend 105-129/60-98 - HR trend 45-52x' - Tmax 98.6 - Sat >94% Suicide attempt with drug overdose (Ativan and Clonazepam) Suicide attempt by drug overdose Major depressive disorder and Anxiety Chronically on benzodiazepine therapy - PRN IM Ativan - Pending psychiatry evaluation - Narcan x 1 dose - Frequent neuro exams by nursing staff - Commital papers will be filled today - LR at 250ml/hr - Follow up with Poison control - 1 to 1 observation by nursing - Suicide precautions - Gupta catheter care Hypomagnesemia - MgSO4 4g IV STAT PROPHYLAXIS DVT- compression stockings GI- not indicated CODE STATUS: FULL CODE DISPOSITION: Patient will be remain in ICU for close observation 1:1, will need to be discharged to inpatient psychiatry once medically cleared.
[2019-09-09] MEDS ORDERED: LORazepam 2 MG/ML SDV IM ONE ×2 (12:50→14:54)
[2019-09-09] MEDS ORDERED: Ketamine 500 mg/10 ML MDV IV ONE (13:02)
[2019-09-09] MEDS ORDERED: Succinylcholine 200 MG/10 ML MDV IV ONE ×2 (13:05→13:17)
[2019-09-09] MEDS ORDERED: Midazolam 1 MG/ML 5 ML SDV IVPUSH ONE ×2 (13:05→13:30)
[2019-09-09] MEDS: fentaNYL 2,500 MCG in Sodium Chloride 0.9% 200 ML IV SCH (13:07)
[2019-09-09] MEDS ORDERED: hydrALAZINE 20 MG/ML SDV IVPUSH ONE (13:25)
[2019-09-09] MEDS ORDERED: Rocuronium 50 MG/5 ML Vial IVPUSH ONE (13:30)
[2019-09-09] MEDS ORDERED: Lactated Ringers 1,000 ML IV ONE ×2 (14:13→15:14)
--- NOTE | 2019-09-09 14:16 | PCM.SN.2 ---
- Free Text/Narrative Note: Rapid Response Note Time notified: around 12:40 Notified by: FINANCIAL DEVELOPER Regarding: Patient became very aggressive and was attempting to get out of bed while pulling at his Gupta catheter Upon arrival: Patient was sitting on side of bed with nurse attempting to restrain both his arms and reasoning for him to release his Gupta catheter Process: Rapid response was called at 12:48 Patient continued to pull at his Gupta catheter which continued to stretch. A CODE MAN POWER was called and multiple staff member were attempting to hold patient. He was given Ativan and Haldol, neither of which reduces his aggression A this time the decision was made to call the police and more staff where requested to come Patient was placed on restraints at 12:57 Proceeded to intubate with one failed attempt and subsequent temporal hypoxemia which resolved. Refer to nursing note for further details.
--- NOTE | 2019-09-09 14:37 | PCM.PRNOTE ---
- Free Text/Narrative Note: Endotracheal Intubation Date: 09/09/2019 Time: 13:14 Indication: Airway protection Attending: Anamaria Youssef MD A time-out was completed verifying correct patient, procedure, site, positioning , and special equipment if applicable. The patient was placed in a flat position. Sedation was obtained using Ketamine 200mg, Versed 4mg and additionally with Succinylcholine 200mg. The patient was easily ventilated using an Ambu bag. The MAC 4 BLADE was used and inserted into the oropharynx at which time there was a Grade 1 view of the vocal cords. A 8-welsh endotracheal tube was inserted and visualized going through the vocal cords. The stylette was removed. Colorimetric change was visualized on the CO2 meter. Breath sounds were heard in both lung blood equally. The endotracheal tube was placed at 26 cm, measured at the teeth. A chest x-ray was ordered to assess forpneumothoraxand verifyendotracheal tube placement, tube repositioned at 24cm at teeth. Estimated Blood Loss: None The patient tolerated the procedure well and there were no complications.
[2019-09-09] MEDS ORDERED: Magnesium Sulfate/Water 4 GM in Premix Bag 1 BAG IV ONE (15:57)
[2019-09-09] MEDS: Pantoprazole 40 MG Vial IVPUSH SCH (16:25)
[2019-09-10] MEDS: Lactated Ringers 1,000 ML IV SCH ×7 (00:11→21:39)
[2019-09-10] MEDS: fentaNYL 2,500 MCG in Sodium Chloride 0.9% 200 ML IV SCH ×2 (01:16→13:54)
[2019-09-10] MEDS ORDERED: Enoxaparin 80 MG/0.8 ML Syringe SUBCUT SCH (09:00)
--- NOTE | 2019-09-10 10:03 | PCM.PN ---
- General Info Date of Service: 09/10/19 Subjective Update: INTERVAL HISTORY Overnight Events: - Nursing staff reports that in the middle of the night, when she tried to decrease sedation , withing the first tapered dose patient woke up fully and started pulling at his ETT for which sedation rate was increased again Vital Signs: BP trend: 84-117/52-63 HR trend: 58-96 Tmax: 99.7 SatO2: >91% (@ 50%) Drips and IVF: Fentanyl @ 200mcg Versed @ 15mg LR @ 250mlo/hr Mechanical Ventilation: Intubation day: 09/09/2019 Mode: AC/VC Vt: 500 FiO2: 50 PEEP: 8 PIP:22 Pmean: 12 Pplateau: 19 I/E: 1:2.3 I/Os: UO: 1,650 24h balance: -324 NG tube output: 150 BM: unknown Glycemia: Glucose trend: 89-104 Insulin use: None New results: WBC down from 11.2-9.14 Hemoglobin down from 13.1-11.2 Platelets down from 225-159 GFR up from 47-55 Magnesium up from 1.5-1.9 Infectious Disease: Antibiotics: None Cultures: None Diet: NPO Lines and tubes: Gupta catheter: 09/08/19 ETT: 09/09/19 NG tube: 09/09/19 - Patient Data Vitals - Most Recent: Last Vital Signs Temp 97.6 F 09/10/19 08:00 Pulse 59 L 09/10/19 09:40 Resp 18 09/10/19 09:40 BP 107/64 09/10/19 09:00 Pulse Ox 97 09/10/19 09:40 Weight - Most Recent: 133.356 kg - Exam Quality Assessment: Supplemental Oxygen (PHYSICAL EXAM CONFOUNDED BY BODY HABITUS), Central Line/PICC, Urine Catheter, DVT Prophylaxis. No: Skin Breakdown General: Sedated HEENT: Pupils Equal, Pupils Reactive Lungs: Decreased Breath Sounds, Crackles. No: Rales, Rhonchi, Rub, Stridor, Wheezing Cardiovascular: Regular Rate, Regular Rhythm, No Murmurs (Unable to auscultate) GI/Abdominal Exam: Soft, Distended Extremities: Normal Inspection, No Pedal Edema, Slow Capillary Refill Peripheral Pulses: 1+: Radial (L), Radial (R), Dorsalis Pedis (L), Dorsalis Pedis (R), 2+: Brachial (L), Brachial (R) Skin: Dry, Cool Sepsis Event Note - Evaluation Sepsis Screening Result: No Definite Risk - Problem List & Annotations (1) Intentional drug overdose SNOMED Code(s): 10124421 Code(s): T50.902A - POISONING BY UNSP DRUG/MEDS/BIOL SUBST, SELF-HARM, INIT Status: Acute Current Visit: Yes (2) Suicide attempt by drug overdose SNOMED Code(s): 39475521, 55927581 Code(s): T50.902A - POISONING BY UNSP DRUG/MEDS/BIOL SUBST, SELF-HARM, INIT Status: Acute Priority: High Current Visit: No (3) Major depressive disorder SNOMED Code(s): 120698800 Code(s): F32.9 - MAJOR DEPRESSIVE DISORDER, SINGLE EPISODE, UNSPECIFIED Status: Acute Current Visit: Yes (4) Anxiety SNOMED Code(s): 42055963 Code(s): F41.9 - ANXIETY DISORDER, UNSPECIFIED Status: Chronic Priority: High Current Visit: No (5) Chronically on benzodiazepine therapy SNOMED Code(s): 906699469 Code(s): Z79.899 - OTHER MANAGER BODY (CURRENT) DRUG THERAPY Status: Acute Current Visit: Yes (6) Hypomagnesemia SNOMED Code(s): 940066538 Code(s): E83.42 - HYPOMAGNESEMIA Status: Acute Current Visit: Yes (7) Bradycardia, drug induced SNOMED Code(s): 499683560 Code(s): R00.1 - BRADYCARDIA, UNSPECIFIED; T50.905A - ADVERSE EFFECT OF UNSP DRUG/MEDS/BIOL SUBST, INIT Status: Acute Current Visit: Yes (8) Aggressive behavior SNOMED Code(s): 04555636 Code(s): R46.89 - OTHER SYMPTOMS AND SIGNS INVOLVING APPEARANCE AND BEHAVIOR Status: Acute Current Visit: Yes (9) Threatening behavior SNOMED Code(s): 325851958 Code(s): R46.89 - OTHER SYMPTOMS AND SIGNS INVOLVING APPEARANCE AND BEHAVIOR Status: Acute Current Visit: Yes (10) Threatening suicide SNOMED Code(s): 99973421 Code(s): R45.851 - SUICIDAL IDEATIONS Status: Acute Current Visit: Yes (11) Threatening to others SNOMED Code(s): 697255170, 557462284 Code(s): R45.89 - OTHER SYMPTOMS AND SIGNS INVOLVING EMOTIONAL STATE Status : Acute Current Visit: Yes - Problem List Review Problem List Initiated/Reviewed/Updated: Yes - Assessment Assessment:: ASSESSMENT Day of admission - Multiple previous attempts, at least 2 documented - Took roughly 30 to 40 tablets of 0.3 mg clonidine, roughly 1 hour prior to arrival to the ER. This equates to roughly 9 to 12 mg of clonidine. - Poison Control notified amount and level of ingestion by patient, recommendations - Patient HR may Mich down to 40s and pt might get hypotensive. - As long as pt is still perfusion and having good urine output and his creatinine is maintaining WNL then bradycardia is not concerning. - Atropine if needed. - Respiratory depression is a concern, can give high dose naloxone prior to intubation to see if pt responds to that. - Also Recommending IVF and checking salicylates and Tylenol level. - Later on, updated poison control that pt may have taken combination of ativan and clonidine - Given Narcan upon transfer to ICU - Overnight patient became very aggressive, disturbing staff - Nursing note "Pt acting irrational and angry. Not cooperating with staff, yelling and calling names. Pt states he wants "all of this to end" and "why won' t you all just leave me the fuck alone? Just leave me alone". He keeps asking where he will go from here and states he does not want to go back to a psych facility. He requested for medications that will "help me knock out! Load me up." - Pt was made aware that because he is a danger and a threat to himself and possibly others, he has to stay here. He continues to threaten to leave. made aware. - H&P update - Nursing spoke to girlfriend - Patient had been living at his mother's house whom he does not get along with very well, so she invited him to stay with her and he had been, but abruptly left this morning with his belongings. - She found an empty bottle of Alprazolam at her residence which she knows contained anywhere from 22-23 2mg tablets. - He then went to his friend Juan's home where he continued to take more Clonidine, but he was able to prevent him from taking more and brought him to the ED. - Recent admissions - August 13 and , seen in ED for SI and started on Lexapro on August 14, 2019 - August 21, 2019 Brought by police for SI, took multiple medications ( Lexapro, Klonopin and Trazodone) as a suicide attempt. - Psychiatry recommended overnight observation for hypoxemia prior to accepting patients transfer to inpatient psychiatry and he was sent to [facility] inpatient unit on August 23, 2019 09/09/19 - Poison control called for an update. They stated that the Pt should be pass the effects of the Clonidine by now but we still have to watch for Bradycardia and Hypotension. - Mg today 1.6 - BP trend 105-129/60-98 - HR trend 45-52x' - Tmax 98.6 - Sat >94% - Around noon patient became significantly aggressive, started pulling at his Gupta catheter and threatening to leave the hospital. -Once he was told that he could not leave due to his suicide attempt patient became even more aggressive, to the point that he required at least 5 people to restrain him -During that time patient was given multiple doses of Ativan and Haldol with minimal response -Physical restraints were placed and were ineffective for which decision was made to sedate patient and this required intubation for airway protection -Prior to intubation patient continued to be aggressive and crying stating he "just wanted to " and "why won't you to just let me " -Successfully intubated around noon, started on Versed and fentanyl for sedation due to patient's borderline blood pressure -Urine output decreased significantly throughout the day - Plan Plan:: PLAN BY SYSTEMS: Neurology: Minimize central acting medications as possible. Frequent neurologic exams by nursing staff. Continue sedation with fentanyl and Versed for now and taper down as tolerated. Respiratory: Continue mechanical ventilation. Endotracheal tube care by RT. Regular suctioning. Aspiration precautions. Daily SBT. ABGs as needed to evaluate need for MV parameter adjustments. Cardiovascular: Sepsis protocol. IVF resuscitation with LR Goal MAP >65 GI and Nutrition: Start trickle feeds today Monitor residuals NG tube care. Kidney and Electrolytes: Strict monitoring of intake, output and overall fluid balance. Maintain neutral as possible. Avoid nephrotoxic medications. Medications to be dosed according to renal function. Monitor electrolytes Trend creatinine and BUN. Endocrine: Scheduled Accu-checks. Hypoglycemia protocol in place. Continue D10 for glycemic control Infectious Disease: Sputum culture Trend temperature. Panculture and lactic acid if febrile. Hematology and Coagulation: No active bleeding, no coagulopathy to correct, no need to transfuse blood products at the moment. Goal hemoglobin >7g Musculoskeletal and Skin: Bed turn rotation by nursing staff. Daily evaluation for pressure ulcers. PROPHYLAXIS DVT-Lovenox GI- pantoprazole CODE STATUS: FULL CODE DISPOSITION: Patient will be remain in ICU for close observation 1:1, will need to be discharged to inpatient psychiatry once medically cleared.
[2019-09-10] MEDS: Pantoprazole 40 MG Vial IVPUSH SCH (10:12)
[2019-09-10] MEDS: Enoxaparin 60 MG/0.6 ML Syringe SUBCUT SCH ×2 (10:35→21:40)
[2019-09-10] MEDS: 50% Dextrose in Water 50 ML Syringe IVPUSH PRN ×2 (12:21→16:27)
[2019-09-10] MEDS ORDERED: Dextrose 10% in Water 1,000 ML IV SCH (16:00)
[2019-09-10] MEDS ORDERED: Dextrose 10% in Water 500 ML IV SCH (16:30)
[2019-09-10] MEDS ORDERED: Piperacillin/Tazobactam 4.5 GM in Sodium Chloride 0.9% 100 ML IV ONE (18:17)
[2019-09-10] MEDS ORDERED: Vancomycin 2 GM in Sodium Chloride 0.9% 500 ML IV ONE (18:23)
[2019-09-10] MEDS ORDERED: Levofloxacin/Dextrose 5%-Water 750 MG in Premix Bag 1 BAG IV SCH (18:30)
[2019-09-10] MEDS ORDERED: Midazolam 1 MG/ML 5 ML SDV IVPUSH PRN (18:36)
[2019-09-10] MEDS: Norepinephrine 4 MG in Dextrose 5% in Water 246 ML IV SCH ×2 (18:50)
--- NOTE | 2019-09-10 19:55 | PCM.PN ---
- General Info Date of Service: 09/10/19 - Patient Data Vitals - Most Recent: Last Vital Signs Temp 99.3 F 09/10/19 17:00 Pulse 73 09/10/19 19:35 Resp 0 L 09/10/19 19:35 BP 118/61 09/10/19 19:31 Pulse Ox 96 09/10/19 19:35 Weight - Most Recent: 133.356 kg I&O - Last 24 Hours: Intake & Output 09/10/19 09/10/19 09/10/19 06:59 14:59 22:59 Intake Total 2569 3988 Output Total 545 400 520 Balance 4 - 3468 Lab Results Last 24 Hours: Laboratory Results - last 24 hr 09/09/19 09/10/19 09/10/19 Range/Units 14:36 00:18 05:42 WBC (4.23-9.07) K/mm3 RBC (4.63-6.08) M/mm3 Hgb (13.7-17.5) gm/dl Hct (40.1-51.0) % MCV (79.0-92.2) fl MCH (25.7-32.2) pg MCHC (32.2-35.5) g/dl RDW Std Deviation (35.1-43.9) fL Plt Count (163-337) K/mm3 MPV (9.4-12.3) fl Neut % (Auto) (34.0-67.9) % Lymph % (Auto) (21.8-53.1) % [place] % (Auto) (5.3-12.2) % Eos % (Auto) (0.8-7.0) Baso % (Auto) (0.1-1.2) % Neut # (Auto) (1.78-5.38) K/mm3 Lymph # (Auto) (1.32-3.57) K/mm3 [place] # (Auto) (0.30-0.82) K/mm3 Eos # (Auto) (0.04-0.54) K/mm3 Baso # (Auto) (0.01-0.08) K/mm3 Sodium (136-145) mEq/L Potassium (3.5-5.1) mEq/L Chloride (98-107) mEq/L Carbon Dioxide (21-32) mEq/L Anion Gap (5-15) BUN (7-18) mg/dL Creatinine (0.7-1.3) mg/dL Est Cr Clr Drug Dosing mL/min Estimated GFR (MDRD) (>60) mL/min BUN/Creatinine Ratio (14-18) Glucose (74-106) mg/dL POC Glucose 96 85 (70-105) mg/dL Lactic Acid (0.4-2.0) mmol/L Calcium (8.5-10.1) mg/dL Phosphorus (2.6-4.7) mg/dL Magnesium (1.8-2.4) mg/dl Procalcitonin 0.19 H (<0.10) ng/mL Urine Color (Yellow) Urine Appearance (Clear) Urine pH (5.0-8.0) Ur Specific [place] (1.005-1.030) Urine Protein (Negative) Urine Glucose (UA) (Negative) Urine Ketones (Negative) Urine Occult Blood (Negative) Urine Nitrite (Negative) Urine Bilirubin (Negative) Urine Urobilinogen (0.2-1.0) Ur Leukocyte Esterase (Negative) Urine RBC (0-5) /hpf Urine WBC (0-5) /hpf Ur Epithelial Cells (0-5) /hpf Amorphous Sediment (NOT SEEN) /hpf Urine Bacteria (FEW) /hpf Urine Mucus (FEW) /hpf Ur Random Creatinine (30.0-125.0) mg/dL Ur Random Sodium (40-220) mEq/L 09/10/19 09/10/19 09/10/19 Range/Units 07:43 07:43 07:43 WBC 9.14 H (4.23-9.07) K/mm3 RBC 4.06 L (4.63-6.08) M/mm3 Hgb 11.2 L D (13.7-17.5) gm/dl Hct 35.3 L (40.1-51.0) % MCV 86.9 (79.0-92.2) fl MCH 27.6 (25.7-32.2) pg MCHC 31.7 L (32.2-35.5) g/dl RDW Std Deviation 43.0 (35.1-43.9) fL Plt Count 159 L (163-337) K/mm3 MPV 10.3 (9.4-12.3) fl Neut % (Auto) 76.1 H (34.0-67.9) % Lymph % (Auto) 11.9 L (21.8-53.1) % [place] % (Auto) 9.5 (5.3-12.2) % Eos % (Auto) 2.3 (0.8-7.0) Baso % (Auto) 0.1 (0.1-1.2) % Neut # (Auto) 6.95 H (1.78-5.38) K/mm3 Lymph # (Auto) 1.09 L (1.32-3.57) K/mm3 [place] # (Auto) 0.87 H (0.30-0.82) K/mm3 Eos # (Auto) 0.21 (0.04-0.54) K/mm3 Baso # (Auto) 0.01 (0.01-0.08) K/mm3 Sodium 140 (136-145) mEq/L Potassium 4.2 (3.5-5.1) mEq/L Chloride 107 (98-107) mEq/L Carbon Dioxide 27 (21-32) mEq/L Anion Gap 10.2 (5-15) BUN 10 (7-18) mg/dL Creatinine 1.4 H (0.7-1.3) mg/dL Est Cr Clr Drug Dosing 73.90 mL/min Estimated GFR (MDRD) 55 (>60) mL/min BUN/Creatinine Ratio 7.1 L (14-18) Glucose 97 (74-106) mg/dL POC Glucose (70-105) mg/dL Lactic Acid 1.3 (0.4-2.0) mmol/L Calcium 8.0 L (8.5-10.1) mg/dL Phosphorus 3.5 (2.6-4.7) mg/dL Magnesium 1.9 (1.8-2.4) mg/dl Procalcitonin (<0.10) ng/mL Urine Color (Yellow) Urine Appearance (Clear) Urine pH (5.0-8.0) Ur Specific [place] (1.005-1.030) Urine Protein (Negative) Urine Glucose (UA) (Negative) Urine Ketones (Negative) Urine Occult Blood (Negative) Urine Nitrite (Negative) Urine Bilirubin (Negative) Urine Urobilinogen (0.2-1.0) Ur Leukocyte Esterase (Negative) Urine RBC (0-5) /hpf Urine WBC (0-5) /hpf Ur Epithelial Cells (0-5) /hpf Amorphous Sediment (NOT SEEN) /hpf Urine Bacteria (FEW) /hpf Urine Mucus (FEW) /hpf Ur Random Creatinine (30.0-125.0) mg/dL Ur Random Sodium (40-220) mEq/L 09/10/19 09/10/19 09/10/19 Range/Units 09:15 09:15 12:13 WBC (4.23-9.07) K/mm3 RBC (4.63-6.08) M/mm3 Hgb (13.7-17.5) gm/dl Hct (40.1-51.0) % MCV (79.0-92.2) fl MCH (25.7-32.2) pg MCHC (32.2-35.5) g/dl RDW Std Deviation (35.1-43.9) fL Plt Count (163-337) K/mm3 MPV (9.4-12.3) fl Neut % (Auto) (34.0-67.9) % Lymph % (Auto) (21.8-53.1) % [place] % (Auto) (5.3-12.2) % Eos % (Auto) (0.8-7.0) Baso % (Auto) (0.1-1.2) % Neut # (Auto) (1.78-5.38) K/mm3 Lymph # (Auto) (1.32-3.57) K/mm3 [place] # (Auto) (0.30-0.82) K/mm3 Eos # (Auto) (0.04-0.54) K/mm3 Baso # (Auto) (0.01-0.08) K/mm3 Sodium (136-145) mEq/L Potassium (3.5-5.1) mEq/L Chloride (98-107) mEq/L Carbon Dioxide (21-32) mEq/L Anion Gap (5-15) BUN (7-18) mg/dL Creatinine (0.7-1.3) mg/dL Est Cr Clr Drug Dosing mL/min Estimated GFR (MDRD) (>60) mL/min BUN/Creatinine Ratio (14-18) Glucose (74-106) mg/dL POC Glucose 62 L (70-105) mg/dL Lactic Acid (0.4-2.0) mmol/L Calcium (8.5-10.1) mg/dL Phosphorus (2.6-4.7) mg/dL Magnesium (1.8-2.4) mg/dl Procalcitonin (<0.10) ng/mL Urine Color Yellow (Yellow) Urine Appearance Clear (Clear) Urine pH 6.5 (5.0-8.0) Ur Specific [place] > or = 1.030 (1.005-1.030) Urine Protein Negative (Negative) Urine Glucose (UA) Negative (Negative) Urine Ketones Negative (Negative) Urine Occult Blood Negative (Negative) Urine Nitrite Negative (Negative) Urine Bilirubin Negative (Negative) Urine Urobilinogen 0.2 (0.2-1.0) Ur Leukocyte Esterase Negative (Negative) Urine RBC 0-5 (0-5) /hpf Urine WBC 0-5 (0-5) /hpf Ur Epithelial Cells 0-5 (0-5) /hpf Amorphous Sediment Few H (NOT SEEN) /hpf Urine Bacteria Few (FEW) /hpf Urine Mucus Not seen (FEW) /hpf Ur Random Creatinine 194.7 H (30.0-125.0) mg/dL Ur Random Sodium 69 (40-220) mEq/L 09/10/19 09/10/19 09/10/19 Range/Units 12:31 12:45 13:18 WBC (4.23-9.07) K/mm3 RBC (4.63-6.08) M/mm3 Hgb (13.7-17.5) gm/dl Hct (40.1-51.0) % MCV (79.0-92.2) fl MCH (25.7-32.2) pg MCHC (32.2-35.5) g/dl RDW Std Deviation (35.1-43.9) fL Plt Count (163-337) K/mm3 MPV (9.4-12.3) fl Neut % (Auto) (34.0-67.9) % Lymph % (Auto) (21.8-53.1) % [place] % (Auto) (5.3-12.2) % Eos % (Auto) (0.8-7.0) Baso % (Auto) (0.1-1.2) % Neut # (Auto) (1.78-5.38) K/mm3 Lymph # (Auto) (1.32-3.57) K/mm3 [place] # (Auto) (0.30-0.82) K/mm3 Eos # (Auto) (0.04-0.54) K/mm3 Baso # (Auto) (0.01-0.08) K/mm3 Sodium (136-145) mEq/L Potassium (3.5-5.1) mEq/L Chloride (98-107) mEq/L Carbon Dioxide (21-32) mEq/L Anion Gap (5-15) BUN (7-18) mg/dL Creatinine (0.7-1.3) mg/dL Est Cr Clr Drug Dosing mL/min Estimated GFR (MDRD) (>60) mL/min BUN/Creatinine Ratio (14-18) Glucose (74-106) mg/dL POC Glucose 69 L 85 86 (70-105) mg/dL Lactic Acid (0.4-2.0) mmol/L Calcium (8.5-10.1) mg/dL Phosphorus (2.6-4.7) mg/dL Magnesium (1.8-2.4) mg/dl Procalcitonin (<0.10) ng/mL Urine Color (Yellow) Urine Appearance (Clear) Urine pH (5.0-8.0) Ur Specific [place] (1.005-1.030) Urine Protein (Negative) Urine Glucose (UA) (Negative) Urine Ketones (Negative) Urine Occult Blood (Negative) Urine Nitrite (Negative) Urine Bilirubin (Negative) Urine Urobilinogen (0.2-1.0) Ur Leukocyte Esterase (Negative) Urine RBC (0-5) /hpf Urine WBC (0-5) /hpf Ur Epithelial Cells (0-5) /hpf Amorphous Sediment (NOT SEEN) /hpf Urine Bacteria (FEW) /hpf Urine Mucus (FEW) /hpf Ur Random Creatinine (30.0-125.0) mg/dL Ur Random Sodium (40-220) mEq/L 09/10/19 09/10/19 09/10/19 Range/Units 13:47 16:19 17:09 WBC (4.23-9.07) K/mm3 RBC (4.63-6.08) M/mm3 Hgb (13.7-17.5) gm/dl Hct (40.1-51.0) % MCV (79.0-92.2) fl MCH (25.7-32.2) pg MCHC (32.2-35.5) g/dl RDW Std Deviation (35.1-43.9) fL Plt Count (163-337) K/mm3 MPV (9.4-12.3) fl Neut % (Auto) (34.0-67.9) % Lymph % (Auto) (21.8-53.1) % [place] % (Auto) (5.3-12.2) % Eos % (Auto) (0.8-7.0) Baso % (Auto) (0.1-1.2) % Neut # (Auto) (1.78-5.38) K/mm3 Lymph # (Auto) (1.32-3.57) K/mm3 [place] # (Auto) (0.30-0.82) K/mm3 Eos # (Auto) (0.04-0.54) K/mm3 Baso # (Auto) (0.01-0.08) K/mm3 Sodium (136-145) mEq/L Potassium (3.5-5.1) mEq/L Chloride (98-107) mEq/L Carbon Dioxide (21-32) mEq/L Anion Gap (5-15) BUN (7-18) mg/dL Creatinine (0.7-1.3) mg/dL Est Cr Clr Drug Dosing mL/min Estimated GFR (MDRD) (>60) mL/min BUN/Creatinine Ratio (14-18) Glucose (74-106) mg/dL POC Glucose 91 58 L 125 H (70-105) mg/dL Lactic Acid (0.4-2.0) mmol/L Calcium (8.5-10.1) mg/dL Phosphorus (2.6-4.7) mg/dL Magnesium (1.8-2.4) mg/dl Procalcitonin (<0.10) ng/mL Urine Color (Yellow) Urine Appearance (Clear) Urine pH (5.0-8.0) Ur Specific [place] (1.005-1.030) Urine Protein (Negative) Urine Glucose (UA) (Negative) Urine Ketones (Negative) Urine Occult Blood (Negative) Urine Nitrite (Negative) Urine Bilirubin (Negative) Urine Urobilinogen (0.2-1.0) Ur Leukocyte Esterase (Negative) Urine RBC (0-5) /hpf Urine WBC (0-5) /hpf Ur Epithelial Cells (0-5) /hpf Amorphous Sediment (NOT SEEN) /hpf Urine Bacteria (FEW) /hpf Urine Mucus (FEW) /hpf Ur Random Creatinine (30.0-125.0) mg/dL Ur Random Sodium (40-220) mEq/L 09/10/19 Range/Units 19:42 WBC (4.23-9.07) K/mm3 RBC (4.63-6.08) M/mm3 Hgb (13.7-17.5) gm/dl Hct (40.1-51.0) % MCV (79.0-92.2) fl MCH (25.7-32.2) pg MCHC (32.2-35.5) g/dl RDW Std Deviation (35.1-43.9) fL Plt Count (163-337) K/mm3 MPV (9.4-12.3) fl Neut % (Auto) (34.0-67.9) % Lymph % (Auto) (21.8-53.1) % [place] % (Auto) (5.3-12.2) % Eos % (Auto) (0.8-7.0) Baso % (Auto) (0.1-1.2) % Neut # (Auto) (1.78-5.38) K/mm3 Lymph # (Auto) (1.32-3.57) K/mm3 [place] # (Auto) (0.30-0.82) K/mm3 Eos # (Auto) (0.04-0.54) K/mm3 Baso # (Auto) (0.01-0.08) K/mm3 Sodium (136-145) mEq/L Potassium (3.5-5.1) mEq/L Chloride (98-107) mEq/L Carbon Dioxide (21-32) mEq/L Anion Gap (5-15) BUN (7-18) mg/dL Creatinine (0.7-1.3) mg/dL Est Cr Clr Drug Dosing mL/min Estimated GFR (MDRD) (>60) mL/min BUN/Creatinine Ratio (14-18) Glucose (74-106) mg/dL POC Glucose 75 (70-105) mg/dL Lactic Acid (0.4-2.0) mmol/L Calcium (8.5-10.1) mg/dL Phosphorus (2.6-4.7) mg/dL Magnesium (1.8-2.4) mg/dl Procalcitonin (<0.10) ng/mL Urine Color (Yellow) Urine Appearance (Clear) Urine pH (5.0-8.0) Ur Specific [place] (1.005-1.030) Urine Protein (Negative) Urine Glucose (UA) (Negative) Urine Ketones (Negative) Urine Occult Blood (Negative) Urine Nitrite (Negative) Urine Bilirubin (Negative) Urine Urobilinogen (0.2-1.0) Ur Leukocyte Esterase (Negative) Urine RBC (0-5) /hpf Urine WBC (0-5) /hpf Ur Epithelial Cells (0-5) /hpf Amorphous Sediment (NOT SEEN) /hpf Urine Bacteria (FEW) /hpf Urine Mucus (FEW) /hpf Ur Random Creatinine (30.0-125.0) mg/dL Ur Random Sodium (40-220) mEq/L Med Orders - Current: Current Medications Dextrose/Water (Dextrose 50% In Water) 50 ml IVPUSH ASDIRECTED PRN PRN Reason: Blood Glucose Last Admin: 09/10/19 16:27 Dose: 50 ml Enoxaparin Sodium (Lovenox) 60 mg SUBCUT Q12H EL Last Admin: 09/10/19 10:35 Dose: 60 mg Lactated Ringer's (Ringers, Lactated) 1,000 mls @ 250 mls/hr IV ASDIRECTED EL Last Admin: 09/10/19 16:16 Dose: 250 mls/hr Fentanyl 2,500 mcg/ Sodium (Chloride) 250 mls @ 20 mls/hr IV TITRATE EL; Protocol Last Infusion: 09/10/19 15:10 Dose: 25 mls/hr Midazolam HCl 100 mg/ Sodium (Chloride) 100 mls @ 15 mls/hr IV TITRATE EL; Protocol Last Admin: 09/10/19 16:14 Dose: 17 mls/hr Dextrose/Water (Dextrose 10% In Water) 500 mls @ 40 mls/hr IV ASDIRECTED EL Last Admin: 09/10/19 16:34 Dose: 40 mls/hr Piperacillin Sod/Tazobactam (Sod 4.5 gm/ Sodium Chloride) 100 mls @ 25 mls/hr IV Q6HR ONE Stop: 09/11/19 03:59 Levofloxacin/Dextrose 750 mg/ (Premix) 150 mls @ 100 mls/hr IV DAILY@1600 EL Norepinephrine Bitartrate 4 mg (/ Dextrose/Water) 250 mls @ 7.5 mls/hr IV TITRATE EL; Protocol Last Admin: 09/10/19 18:50 Dose: 10 mcg/min, 37.5 mls/hr Vancomycin HCl 1 gm/Vancomycin HCl 500 mg/ Sodium Chloride 500 mls @ 333.333 mls/hr IV Q12H EL Lorazepam (Ativan) 2 mg IVPUSH Q4H PRN PRN Reason: Agitation Midazolam HCl (Versed 1 Mg/Ml) 15 mg IVPUSH ONETIME PRN PRN Reason: If he awakens suddenly from se Ondansetron HCl (Zofran) 4 mg IV Q6H PRN PRN Reason: Nausea/Vomiting Last Admin: 09/08/19 19:59 Dose: 4 mg Pantoprazole Sodium (Protonix Iv) 40 mg IVPUSH DAILY [facility] Last Admin: 09/10/19 10:12 Dose: 40 mg Vancomycin HCl (Pharmacy To Dose - Vancomycin) 1 dose .XX ASDIRECTED EL Discontinued Medications Albuterol (Proventil Neb Soln) Confirm Administered Dose 2.5 mg .ROUTE .STK-MED ONE Stop: 09/09/19 08:56 Last Admin: 09/09/19 08:57 Dose: 2.5 mg Albuterol (Proventil Neb Soln) 2.5 mg NEB ONETIME ONE Stop: 09/09/19 09:02 Last Admin: 09/09/19 10:42 Dose: Not Given Diphenhydramine HCl (Benadryl) 50 mg IM ONETIME ONE Stop: 09/09/19 09:25 Last Admin: 09/09/19 11:34 Dose: Not Given Diphenhydramine HCl (Benadryl) 50 mg IM ONETIME ONE Stop: 09/09/19 12:51 Last Admin: 09/09/19 16:19 Dose: Not Given Enoxaparin Sodium (Lovenox) 80 mg SUBCUT DAILY EL Last Admin: 09/10/19 10:41 Dose: Not Given Haloperidol Lactate (Haldol) Confirm Administered Dose 5 mg .ROUTE .STK-MED ONE Stop: 09/09/19 02:29 Last Admin: 09/09/19 02:38 Dose: 5 mg Haloperidol Lactate (Haldol) 5 mg IM ONETIME ONE Stop: 09/09/19 02:35 Last Admin: 09/09/19 02:50 Dose: 5 mg Haloperidol Lactate (Haldol) 5 mg IM ONETIME ONE Stop: 09/09/19 09:25 Last Admin: 09/09/19 11:34 Dose: Not Given Haloperidol Lactate (Haldol) Confirm Administered Dose 5 mg .ROUTE .[facility]-MED ONE Stop: 09/09/19 12:49 Last Admin: 09/09/19 14:56 Dose: Not Given Haloperidol Lactate (Haldol) 5 mg IM ONETIME ONE Stop: 09/09/19 14:54 Last Admin: 09/09/19 15:18 Dose: 5 mg Haloperidol Lactate (Haldol) 5 mg IM ONETIME ONE Stop: 09/09/19 12:51 Last Admin: 09/09/19 16:18 Dose: 5 mg Hydralazine HCl (Apresoline) 10 mg IVPUSH ONETIME ONE Stop: 09/09/19 13:26 Last Admin: 09/09/19 14:33 Dose: Not Given Sodium Chloride (Normal Saline) 1,000 mls @ 500 mls/hr IV ONETIME ONE Stop: 09/08/19 16:01 Last Admin: 09/08/19 14:06 Dose: 500 mls/hr Fentanyl 2,500 mcg/ Sodium (Chloride) 250 mls @ 12.9 mls/hr IV TITRATE EL; Protocol Last Admin: 09/10/19 01:16 Dose: 1.54 mcg/kg/hr, 20 mls/hr Midazolam HCl 100 mg/ Sodium (Chloride) 100 mls @ 2.58 mls/hr IV TITRATE EL; Protocol Midazolam HCl 100 mg/ Sodium (Chloride) 100 mls @ 2.58 mls/hr IV TITRATE EL; Protocol Last Infusion: 09/10/19 05:01 Dose: 0.11 mg/kg/hr, 15 mls/hr Lactated Ringer's (Ringers, Lactated) 1,000 mls @ 999 mls/hr IV .BOLUS ONE Stop: 09/09/19 15:13 Last Admin: 09/09/19 14:31 Dose: 999 mls/hr Lactated Ringer's (Ringers, Lactated) 1,000 mls @ 999 mls/hr IV .BOLUS ONE Stop: 09/09/19 16:14 Last Admin: 09/09/19 14:52 Dose: 999 mls/hr Magnesium Sulfate 4 gm/ Premix 50 mls @ 12.5 mls/hr IV ONETIME ONE Stop: 09/09/19 19:56 Last Admin: 09/09/19 16:32 Dose: 12.5 mls/hr Dextrose/Water (Dextrose 10% In Water) 1,000 mls @ 40 mls/hr IV ASDIRECTED EL Piperacillin Sod/Tazobactam (Sod 4.5 gm/ Sodium Chloride) 100 mls @ 200 mls/hr IV ONETIME ONE Stop: 09/10/19 18:46 Vancomycin HCl 2 gm/ Sodium (Chloride) 500 mls @ 250 mls/hr IV ONETIME ONE Stop: 09/10/19 18:24 Ketamine HCl (Ketalar) 200 mg IV ONETIME ONE Stop: 09/09/19 13:03 Last Admin: 09/09/19 18:52 Dose: 200 mg Lorazepam (Ativan) 2 mg IM ONETIME ONE Stop: 09/09/19 09:25 Last Admin: 09/09/19 11:33 Dose: Not Given Lorazepam (Ativan) 2 mg IM ONETIME ONE Stop: 09/09/19 14:55 Last Admin: 09/09/19 15:23 Dose: 2 mg Lorazepam (Ativan) 2 mg IM ONETIME ONE Stop: 09/09/19 12:51 Last Admin: 09/09/19 16:17 Dose: 2 mg Midazolam HCl (Versed 1 Mg/Ml) 5 mg IVPUSH ONETIME ONE Stop: 09/09/19 13:31 Last Admin: 09/09/19 18:43 Dose: 5 mg Midazolam HCl (Versed 1 Mg/Ml) 4 mg IVPUSH ONETIME ONE Stop: 09/09/19 13:06 Last Admin: 09/09/19 18:44 Dose: 4 mg Naloxone HCl (Narcan) 1 mg IVPUSH ONETIME ONE Stop: 09/08/19 19:22 Last Admin: 09/08/19 19:59 Dose: 1 mg Rocuronium [place] (Zemuron) 50 mg IVPUSH ONETIME ONE Stop: 09/09/19 13:31 Last Admin: 09/09/19 18:53 Dose: 50 mg Succinylcholine Chloride (Quelicin) 200 mg IV ONETIME ONE Stop: 09/09/19 13:06 Last Admin: 09/09/19 18:46 Dose: 200 mg Succinylcholine Chloride (Quelicin) 200 mg IV ONETIME ONE Stop: 09/09/19 13:18 Last Admin: 09/09/19 18:46 Dose: 200 mg Sepsis Event Note - Evaluation Sepsis Screening Result: No Definite Risk - Focused Exam Vital Signs: Vital Signs Temp Pulse Resp BP BP Pulse Ox Pulse Ox 09/10/19 19:35 73 0 L 96 09/10/19 19:31 72 118/61 96 09/10/19 19:30 72 0 L 96 09/10/19 19:25 72 0 L 96 09/10/19 19:20 71 0 L 97 09/10/19 19:16 71 119/60 96 09/10/19 19:15 71 9 L 97 09/10/19 19:10 71 97 09/10/19 19:05 69 96 09/10/19 19:01 72 0 L 93/51 L 95 09/10/19 19:00 72 0 L 96 09/10/19 18:55 72 0 L 95 09/10/19 18:50 73 0 L 95 09/10/19 18:46 75 0 L 85/48 L 93 L 09/10/19 18:45 78 10 L 91 L 09/10/19 18:40 72 15 96 09/10/19 18:35 72 0 L 97 09/10/19 18:31 70 94/49 L 97 09/10/19 18:30 69 0 L 97 09/10/19 18:25 70 97 95 09/10/19 18:20 70 0 L 97 09/10/19 18:16 70 0 L 90/48 L 98 09/10/19 18:15 70 0 L 97 09/10/19 18:10 71 0 L 100 09/10/19 18:05 71 0 L 98 09/10/19 18:01 69 0 L 96/49 L 98 09/10/19 18:00 69 98 09/10/19 17:55 67 100 09/10/19 17:50 69 0 L 99 09/10/19 17:46 69 0 L 92/47 L 99 09/10/19 17:45 68 0 L 99 09/10/19 17:40 69 0 L 99 09/10/19 17:35 69 0 L 100 09/10/19 17:32 69 100 09/10/19 17:31 68 89/47 L 100 09/10/19 17:29 69 100 09/10/19 17:25 69 18 96 09/10/19 17:20 68 18 96 09/10/19 17:17 88/47 L 09/10/19 17:16 68 18 88/47 L 96 09/10/19 17:15 68 18 96 09/10/19 17:10 68 18 96 09/10/19 17:05 69 18 97 09/10/19 17:01 71 18 85/49 L 96 09/10/19 17:00 99.3 F 71 18 96 09/10/19 16:55 72 18 99 09/10/19 16:50 70 18 98 09/10/19 16:45 70 18 98 09/10/19 16:40 70 18 98 09/10/19 16:35 70 18 98 09/10/19 16:30 72 18 97 09/10/19 16:25 70 18 98 09/10/19 16:20 71 18 96 09/10/19 16:15 71 18 97 09/10/19 16:10 72 18 96 09/10/19 16:05 71 18 97 09/10/19 16:01 72 18 95/49 L 97 09/10/19 16:00 73 18 96 09/10/19 15:56 73 18 96 09/10/19 15:50 73 18 95 09/10/19 15:49 94 L 09/10/19 15:45 74 18 93 L 09/10/19 15:40 80 18 92 L 09/10/19 15:35 76 22 H 92 L 09/10/19 15:30 69 18 96 09/10/19 15:25 68 18 97 09/10/19 15:20 68 18 97 09/10/19 15:15 69 18 96 09/10/19 15:10 71 18 97 05/31/20 15:05 73 18 98 09/10/19 15:01 77 19 96 09/10/19 15:00 98.6 F 77 18 83/53 L 96 09/10/19 14:59 68 15 97 09/10/19 14:55 66 18 98 09/10/19 14:50 65 18 98 09/10/19 14:45 65 18 98 09/10/19 14:40 66 18 97 09/10/19 14:35 66 18 97 09/10/19 14:30 66 18 97 09/10/19 14:25 66 18 96 09/10/19 14:20 66 18 96 09/10/19 14:15 70 18 96 09/10/19 14:10 72 22 H 95 09/10/19 14:05 64 18 98 09/10/19 14:01 64 18 98 09/10/19 14:00 98.6 F 63 18 107/66 98 09/10/19 13:59 63 18 98 09/10/19 13:55 62 18 98 09/10/19 13:50 64 18 98 09/10/19 13:45 64 18 98 09/10/19 13:40 64 18 98 09/10/19 13:35 65 18 97 09/10/19 13:30 64 18 97 09/10/19 13:25 64 18 97 09/10/19 13:20 65 18 97 09/10/19 13:15 65 18 97 09/10/19 13:10 65 18 97 09/10/19 13:05 65 18 97 09/10/19 13:01 66 18 97 09/10/19 13:00 99.3 F 65 18 96/56 L 97 09/10/19 12:59 66 18 97 09/10/19 12:55 65 18 97 09/10/19 12:50 66 18 96 09/10/19 12:45 66 18 96 09/10/19 12:40 66 18 96 09/10/19 12:35 66 18 96 09/10/19 12:30 66 18 96 09/10/19 12:25 68 18 95 09/10/19 12:20 66 18 96 09/10/19 12:15 66 18 96 09/10/19 12:10 66 18 95 09/10/19 12:05 66 18 95 09/10/19 12:01 68 18 94 L 09/10/19 12:00 68 18 97/59 L 94 L 09/10/19 11:59 68 18 94 L 09/10/19 11:55 70 18 94 L 09/10/19 11:50 70 18 95 09/10/19 11:49 95 09/10/19 11:45 73 18 98 09/10/19 11:40 76 18 98 09/10/19 11:35 63 18 98 09/10/19 11:30 63 18 97 09/10/19 11:25 62 18 97 09/10/19 11:20 63 18 97 09/10/19 11:15 62 18 97 09/10/19 11:10 62 18 97 09/10/19 11:05 63 18 97 09/10/19 11:01 62 18 97/56 L 97 09/10/19 11:00 62 18 97 09/10/19 10:55 62 18 97 09/10/19 10:50 62 18 97 09/10/19 10:45 62 18 97 09/10/19 10:40 63 18 97 09/10/19 10:35 62 18 97 09/10/19 10:31 62 18 97 09/10/19 10:25 63 18 97 09/10/19 10:20 62 18 97 09/10/19 10:15 62 18 97 09/10/19 10:10 63 18 96 09/10/19 10:05 62 18 96 09/10/19 10:01 62 18 96 09/10/19 10:00 62 18 99/56 L 96 09/10/19 09:59 62 18 96 09/10/19 09:55 62 18 96 09/10/19 09:50 61 18 97 09/10/19 09:45 18 09/10/19 09:40 59 L 18 88 L 97 09/10/19 09:35 18 09/10/19 09:30 17 09/10/19 09:25 60 18 100 09/10/19 09:20 59 L 18 100 09/10/19 09:15 59 L 18 100 09/10/19 09:10 59 L 18 100 09/10/19 09:05 59 L 18 100 09/10/19 09:01 59 L 18 100 09/10/19 09:00 59 L 18 107/64 100 09/10/19 08:59 58 L 18 100 09/10/19 08:55 18 09/10/19 08:50 59 L 18 100 09/10/19 08:45 58 L 18 100 09/10/19 08:40 59 L 18 100 09/10/19 08:35 58 L 18 100 09/10/19 08:30 59 L 18 98 09/10/19 08:27 91 L 09/10/19 08:25 17 09/10/19 08:20 18 09/10/19 08:15 18 09/10/19 08:10 18 09/10/19 08:05 18 09/10/19 08:01 58 L 18 97 09/10/19 08:00 97.6 F 59 L 18 97/57 L 97 09/10/19 07:59 58 L 18 97 Date Exam was Performed: 09/10/19 Time Exam was Performed: 19:55 - Problem List & Annotations (1) Intentional drug overdose SNOMED Code(s): 29694616 Code(s): T50.902A - POISONING BY UNSP DRUG/MEDS/BIOL SUBST, SELF-HARM, INIT Status: Acute Current Visit: Yes (2) Suicide attempt by drug overdose SNOMED Code(s): 83609589, 23693373 Code(s): T50.902A - POISONING BY UNSP DRUG/MEDS/BIOL SUBST, SELF-HARM, INIT Status: Acute Priority: High Current Visit: No (3) Major depressive disorder SNOMED Code(s): 987418488 Code(s): F32.9 - MAJOR DEPRESSIVE DISORDER, SINGLE EPISODE, UNSPECIFIED Status: Acute Current Visit: Yes (4) Anxiety SNOMED Code(s): 48179753 Code(s): F41.9 - ANXIETY DISORDER, UNSPECIFIED Status: Chronic Priority: High Current Visit: No (5) Chronically on benzodiazepine therapy SNOMED Code(s): 460645318 Code(s): Z79.899 - OTHER DETENTION (CURRENT) DRUG THERAPY Status: Acute Current Visit: Yes (6) Hypomagnesemia SNOMED Code(s): 700672684 Code(s): E83.42 - HYPOMAGNESEMIA Status: Acute Current Visit: Yes (7) Bradycardia, drug induced SNOMED Code(s): 921140638 Code(s): R00.1 - BRADYCARDIA, UNSPECIFIED; T50.905A - ADVERSE EFFECT OF UNSP DRUG/MEDS/BIOL SUBST, INIT Status: Acute Current Visit: Yes - My Orders Last 24 Hours: My Active Orders 09/09/19 21:38 Communication Order [RC] ASDIRECTED 09/10/19 07:43 PROCALCITONIN [REF] Stat 09/10/19 08:42 fentaNYL [Sublimaze] 2,500 mcg Sodium Chloride 0.9% [Normal Saline] 200 ml IV TITRATE 09/10/19 08:44 Midazolam [Versed 5 MG/ML] 100 mg Sodium Chloride 0.9% [Normal Saline] 80 ml IV TITRATE 09/10/19 10:30 Enoxaparin [Lovenox] 60 mg SUBCUT Q12H 09/10/19 12:15 Aspiration Precautions [RC] ASDIRECTED Tube Feeding [Enteral Feedings] [RC] Q4HR Dextrose 50% in Water 50 ml IVPUSH ASDIRECTED PRN 09/10/19 16:30 Dextrose 10% in Water 500 ml IV ASDIRECTED 09/10/19 18:27 OR PCXR-No Charge-PICC/Central [CR] Stat 09/10/19 18:30 Levofloxacin/Dextrose 5%-Water [Levaquin in D5W 750 MG/150 ML] 750 mg Premix Bag 1 bag IV DAILY@1600 Norepinephrine [Levophed] 4 mg Dextrose 5% in Water 246 ml IV TITRATE Pharmacy to Dose - Vancomycin 1 dose .XX ASDIRECTED 09/10/19 18:35 CULTURE SPUTUM + SMEAR [RM] Routine 09/10/19 18:36 Midazolam [Versed 1 MG/ML] 15 mg IVPUSH ONETIME PRN 09/11/19 00:00 Piperacillin/Tazobactam [Piperacil-Tazobact] 4.5 gm Sodium Chloride 0.9% [ Normal Saline] 100 ml IV Q6HR 09/11/19 08:00 Vancomycin 1 gm Vancomycin 500 mg Sodium Chloride 0.9% [Normal Saline] 500 ml IV Q12H 09/12/19 10:30 PROCALCITONIN [REF] Q48H 09/14/19 10:30 PROCALCITONIN [REF] Q48H 09/16/19 10:30 PROCALCITONIN [REF] Q48H - Plan Plan:: ASSESSMENT Day of admission - Multiple previous attempts, at least 2 documented - Took roughly 30 to 40 tablets of 0.3 mg clonidine, roughly 1 hour prior to arrival to the ER. This equates to roughly 9 to 12 mg of clonidine. - Poison Control notified amount and level of ingestion by patient, recommendations - Patient HR may Mich down to 40s and pt might get hypotensive. - As long as pt is still perfusion and having good urine output and his creatinine is maintaining WNL then bradycardia is not concerning. - Atropine if needed. - Respiratory depression is a concern, can give high dose naloxone prior to intubation to see if pt responds to that. - Also Recommending IVF and checking salicylates and Tylenol level. - Later on, updated poison control that pt may have taken combination of ativan and clonidine - Given Narcan upon transfer to ICU - Overnight patient became very aggressive, disturbing staff - Nursing note "Pt acting irrational and angry. Not cooperating with staff, yelling and calling names. Pt states he wants "all of this to end" and "why won' t you all just leave me the fuck alone? Just leave me alone". He keeps asking where he will go from here and states he does not want to go back to a psych facility. He requested for medications that will "help me knock out! Load me up." - Pt was made aware that because he is a danger and a threat to himself and possibly others, he has to stay here. He continues to threaten to leave. made aware. - H&P update - Nursing spoke to girlfriend - Patient had been living at his mother's house whom he does not get along with very well, so she invited him to stay with her and he had been, but abruptly left this morning with his belongings. - She found an empty bottle of Alprazolam at her residence which she knows contained anywhere from 22-23 2mg tablets. - He then went to his friend Juan's home where he continued to take more Clonidine, but he was able to prevent him from taking more and brought him to the ED. - Recent admissions - August 13 and , seen in ED for SI and started on Lexapro on August 14, 2019 - August 21, 2019 Brought by police for SI, took multiple medications ( Lexapro, Klonopin and Trazodone) as a suicide attempt. - Psychiatry recommended overnight observation for hypoxemia prior to accepting patients transfer to inpatient psychiatry and he was sent to [facility] inpatient unit on August 23, 2019 09/09/19 - Poison control called for an update. They stated that the Pt should be pass the effects of the Clonidine by now but we still have to watch for Bradycardia and Hypotension. - Mg today 1.6 - BP trend 105-129/60-98 - HR trend 45-52x' - Tmax 98.6 - Sat >94% Suicide attempt with drug overdose (Ativan and Clonazepam) Suicide attempt by drug overdose Major depressive disorder and Anxiety Chronically on benzodiazepine therapy - PRN IM Ativan - Pending psychiatry evaluation - Narcan x 1 dose - Frequent neuro exams by nursing staff - Commital papers will be filled today - LR at 250ml/hr - Follow up with Poison control - 1 to 1 observation by nursing - Suicide precautions - Gupta catheter care Hypomagnesemia - MgSO4 4g IV STAT PROPHYLAXIS DVT- compression stockings GI- not indicated CODE STATUS: FULL CODE DISPOSITION: Patient will be remain in ICU for close observation 1:1, will need to be discharged to inpatient psychiatry once medically cleared.
[2019-09-10] MEDS: propofoL 100 ML IV SCH ×2 (20:00→21:46)
--- NOTE | 2019-09-10 20:00 | PCM.PRNOTE ---
- Free Text/Narrative Note: Central Venous Catheter Placement Date: 09/10/2019 Time: 17:46 Indication: Need for caustic medication use Attending: Anamaria Youssef MD A time-out was completed verifying correct patient, procedure, site, positioning , and special equipment if applicable. The patient was placed in a dependent position appropriate for central line placement based on the vein to becannulated. The patients right neck was prepped and draped in sterile fashion. 1%Lidocainewas used to anesthetize the surrounding skin area. A triple lumen 7-FrenchCordiscatheter was introduced into the the right internal jugular vein using the Seldingertechnique and under ultrasound guidance. The catheter was threaded smoothly over the guide wire and appropriate blood return was obtained. Each lumen of the catheter was evacuated of air and flushed with sterile saline. The catheter was then sutured in place to the skin and a sterile dressing applied. Perfusion to the extremity distal to the point of catheter insertion was checked and found to be adequate. Chest x-ray was performed to verify placement. Estimated Blood Loss: 10 mL The patient tolerated the procedure well and there were no complications.
[2019-09-10 21:50] VITALS: PULSE 66
[2019-09-11] MEDS: propofoL 100 ML IV SCH ×3 (01:04→13:50)
[2019-09-11] MEDS: Lactated Ringers 1,000 ML IV SCH ×3 (01:49→09:24)
[2019-09-11] MEDS: fentaNYL 2,500 MCG in Sodium Chloride 0.9% 200 ML IV SCH ×2 (03:43→13:51)
[2019-09-11] MEDS: Piperacillin/Tazobactam 4.5 GM in Sodium Chloride 0.9% 100 ML IV SCH ×2 (03:58→10:59)
[2019-09-11] MEDS ORDERED: Dextrose 10% in Water 1,000 ML IV SCH (04:15)
[2019-09-11] MEDS: Norepinephrine 4 MG in Dextrose 5% in Water 246 ML IV SCH ×2 (05:12)
--- NOTE | 2019-09-11 06:37 | CR ---
Chest: Portable supine view of the chest was obtained. Comparison: No previous chest imaging is available. Heart size and mediastinum are normal. Tip of endotracheal tube lies at the level of the clavicles and is above the alda. Patchy areas of increased lung markings are seen within both sides of the chest. Findings may represent mild perihilar interstitial pneumonia or pulmonary vascular congestion. Impression: 1. Patchy areas of increased lung markings on both sides of the chest as noted above. 2. Satisfactory position of endotracheal tube. Diagnostic code #3 This report was dictated in MDT I agree with preliminary report from [facility], finalized on 09/09/19, 2:43 PM Central Daylight Time
--- NOTE | 2019-09-11 06:49 | CR ---
Chest: Portable supine view of the chest was obtained. Comparison: Previous chest x-ray of 09/09/19. Heart size and mediastinum are stable. Increased lung markings again seen on both sides which are stable. Endotracheal tube lies above the alda in satisfactory position. Nasogastric tube is noted which courses off the inferior edge of the film into the stomach. Right jugular line is seen with tip being difficult to identify but appears to lie within the right atrium. Bony structures are grossly intact. Impression: 1. Endotracheal tube in satisfactory position. 2. Nasogastric tube with tip located below the visualized diaphragm. 3. Right jugular line with tip lying within the right atrial. No pneumothorax is seen. 4. Increased lung markings again seen on both sides of the chest which are stable. Diagnostic code #3 This report was dictated in MDT I agree with preliminary report from [facility], finalized on 09/10/19, 7:52 PM Central Daylight Time
[2019-09-11] MEDS ORDERED: Midazolam 1 MG/ML 2 ML SDV IVPUSH PRN (07:56)
[2019-09-11] MEDS: Pantoprazole 40 MG Vial IVPUSH SCH (09:18)
[2019-09-11] MEDS: Enoxaparin 60 MG/0.6 ML Syringe SUBCUT SCH (09:30)
[2019-09-11] MEDS ORDERED: Midazolam 100 MG in Premix Bag 1 BAG IV SCH (10:00)
[2019-09-11] MEDS ORDERED: Piperacillin/Tazobactam 4.5 GM in Sodium Chloride 0.9% 100 ML IV ONE ×3 (10:00)
[2019-09-11] MEDS ORDERED: Magnesium Sulfate/Water 4 GM in Premix Bag 1 BAG IV ONE (10:30)
--- NOTE | 2019-09-11 12:23 | PCM.DCSUM1 ---
Discharge Summary - Hospital Course HPI Initial Comments: The patient is a 44-year-old male who presents to the ED for an overdose. The patient is responsive to painful stimuli only, he is not able to provide us with history. Review of his old charts show that the patient has had multiple possible overdoses and or suicide attempts,, 1 of which needed a hospitalization in our hospital on August 20. The patient's friend that brought him in, but the pill bottle that the patient took, and it was decided that the patient took roughly 30 to 40 tablets of 0.3 mg clonidine, roughly 1 hour prior to arrival to the ER. This equates to roughly 9 to 12 mg of clonidine. Patient is still breathing on his own, O2 sats are 96% on room air, heart rate is 56, the nurse was able to get him to respond to her with a sternal rub, and states that his speech was very slurred, and he did not know where he was. - Discharge Data Discharge Date: 09/11/19 Discharge Disposition: DC/Tfer to Acute Hospital 02 Condition: Good - Referral to Home Health Primary Care Physician: Linda Castano NP - Discharge Diagnosis/Problem(s) (1) Intentional drug overdose SNOMED Code(s): 58705780 ICD Code: T50.902A - POISONING BY UNSP DRUG/MEDS/BIOL SUBST, SELF-HARM, INIT Status: Acute Current Visit: Yes (2) Suicide attempt by drug overdose SNOMED Code(s): 05455050, 21269349 ICD Code: T50.902A - POISONING BY UNSP DRUG/MEDS/BIOL SUBST, SELF-HARM, INIT Status: Acute Priority: High Current Visit: No (3) Major depressive disorder SNOMED Code(s): 174533547 ICD Code: F32.9 - MAJOR DEPRESSIVE DISORDER, SINGLE EPISODE, UNSPECIFIED Status: Acute Current Visit: Yes (4) Anxiety SNOMED Code(s): 39071044 ICD Code: F41.9 - ANXIETY DISORDER, UNSPECIFIED Status: Chronic Priority : High Current Visit: No (5) Chronically on benzodiazepine therapy SNOMED Code(s): 358800461 ICD Code: Z79.899 - OTHER RN BARIATRIC (CURRENT) DRUG THERAPY Status: Acute Current Visit: Yes (6) Hypomagnesemia SNOMED Code(s): 945667217 ICD Code: E83.42 - HYPOMAGNESEMIA Status: Acute Current Visit: Yes (7) Bradycardia, drug induced SNOMED Code(s): 727081286 ICD Code: R00.1 - BRADYCARDIA, UNSPECIFIED; T50.905A - ADVERSE EFFECT OF UNSP DRUG/MEDS/BIOL SUBST, INIT Status: Acute Current Visit: Yes (8) Aggressive behavior SNOMED Code(s): 97230363 ICD Code: R46.89 - OTHER SYMPTOMS AND SIGNS INVOLVING APPEARANCE AND BEHAVIOR Status: Acute Current Visit: Yes (9) Threatening behavior SNOMED Code(s): 320844626 ICD Code: R46.89 - OTHER SYMPTOMS AND SIGNS INVOLVING APPEARANCE AND BEHAVIOR Status: Acute Current Visit: Yes (10) Threatening suicide SNOMED Code(s): 15756841 ICD Code: R45.851 - SUICIDAL IDEATIONS Status: Acute Current Visit: Yes (11) Threatening to others SNOMED Code(s): 093630695, 422222659 ICD Code: R45.89 - OTHER SYMPTOMS AND SIGNS INVOLVING EMOTIONAL STATE Status: Acute Current Visit: Yes - Patient Summary/Data Consults: Consultations 09/08/19 15:33 Consult to Physician [CONS] Routine Consult to Spiritual Care [CONS] Routine Hospital Course: ASSESSMENT/OVERNIGHT EVENTS/PLAN PER DAY Day of Admission - Multiple previous attempts, at least 2 documented - Took roughly 30 to 40 tablets of 0.3 mg clonidine, roughly 1 hour prior to arrival to the ER. This equates to roughly 9 to 12 mg of clonidine. - Poison Control notified amount and level of ingestion by patient, recommendations - Patient HR may Mich down to 40s and pt might get hypotensive. - As long as pt is still perfusion and having good urine output and his creatinine is maintaining WNL then bradycardia is not concerning. - Atropine if needed. - Respiratory depression is a concern, can give high dose naloxone prior to intubation to see if pt responds to that. - Also Recommending IVF and checking salicylates and Tylenol level. - Later on, updated poison control that pt may have taken combination of ativan and clonidine - Given Narcan upon transfer to ICU - Overnight patient became very aggressive, disturbing staff - Nursing note "Pt acting irrational and angry. Not cooperating with staff, yelling and calling names. Pt states he wants "all of this to end" and "why won' t you all just leave me the fuck alone? Just leave me alone". He keeps asking where he will go from here and states he does not want to go back to a psych facility. He requested for medications that will "help me knock out! Load me up." - Pt was made aware that because he is a danger and a threat to himself and possibly others, he has to stay here. He continues to threaten to leave. made aware. - H&P update - Nursing spoke to girlfriend - Patient had been living at his mother's house whom he does not get along with very well, so she invited him to stay with her and he had been, but abruptly left this morning with his belongings. - She found an empty bottle of Alprazolam at her residence which she knows contained anywhere from 22-23 2mg tablets. - He then went to his friend Juan's home where he continued to take more Clonidine, but he was able to prevent him from taking more and brought him to the ED. - Recent admissions - August 13 and , seen in ED for SI and started on Lexapro on August 14, 2019 - August 21, 2019 Brought by police for SI, took multiple medications ( Lexapro, Klonopin and Trazodone) as a suicide attempt. - Psychiatry recommended overnight observation for hypoxemia prior to accepting patients transfer to inpatient psychiatry and he was sent to [facility] inpatient unit on August 23, 2019 PLAN - Narcan x 1 dose - Frequent neuro exams by nursing staff - Consult to psychiatry - Consult clinical social worker for commitment - LR at 250ml/hr - Follow up with toxicology - 1 to 1 observation by nursing - Suicide precautions 09/09/19 - Poison control called for an update. They stated that the Pt should be pass the effects of the Clonidine by now but we still have to watch for Bradycardia and Hypotension. - Mg today 1.6 - BP trend 105-129/60-98 - HR trend 45-52x' - Tmax 98.6 - Sat >94% - Around noon patient became significantly aggressive, started pulling at his Gupta catheter and threatening to leave the hospital. -Once he was told that he could not leave due to his suicide attempt patient became even more aggressive, to the point that he required at least 5 people to restrain him -During that time patient was given multiple doses of Ativan and Haldol with minimal response -Physical restraints were placed and were ineffective for which decision was made to sedate patient and this required intubation for airway protection -Prior to intubation patient continued to be aggressive and crying stating he "just wanted to " and "why won't you to just let me " -Successfully intubated around noon, started on Versed and fentanyl for sedation due to patient's borderline blood pressure -Urine output decreased significantly throughout the day -Overnight patient still requiring significantly high doses of sedation Rapid Response Note Upon arrival: Patient was sitting on side of bed with nurse attempting to restrain both his arms and reasoning for him to release his Gupta catheter Process: Rapid response was called at 12:48 Patient continued to pull at his Gupta catheter which continued to stretch. A [employer] MAN POWER was called and multiple staff member were attempting to hold patient. He was given Ativan and Haldol, neither of which reduces his aggression A this time the decision was made to call the police and more staff where requested to come Patient was placed on restraints at 12:57 Proceeded to intubate with one failed attempt and subsequent temporal hypoxemia which resolved. Refer to nursing note for further details. 09/10/19 INTERVAL HISTORY Overnight Events: -Nursing staff reports that in the middle of the night, when she tried to decrease sedation , withing the first tapered dose patient woke up fully and started pulling at his ETT for which sedation rate was increased again Vital Signs: BP trend: 84-117/52-63 HR trend: 58-96 Tmax: 99.7 SatO2: >91% (@ 50%) Drips and IVF: Fentanyl @ 200mcg Versed @ 15mg LR @ 250mlo/hr Mechanical Ventilation: Intubation day: 09/09/2019 Mode: AC/VC Vt: 500 FiO2: 50 PEEP: 8 PIP:22 Pmean: 12 Pplateau: 19 I/E: 1:2.3 I/Os: UO: 1,650 24h balance: -324 NG tube output: 150 BM: unknown Glycemia: Glucose trend: 89-104 Insulin use: None New results: WBC down from 11.2-9.14 Hemoglobin down from 13.1-11.2 Platelets down from 225-159 GFR up from 47-55 Magnesium up from 1.5-1.9 Infectious Disease: Antibiotics: None Cultures: None Diet: NPO Lines and tubes: Gupta catheter: 09/08/19 ETT: 09/09/19 NG tube: 09/09/19 PLAN -Attempted to start tube feeds with trickle rate of 10 with 100% residual for which it was stopped -With midazolam at 15 and fentanyl at 200 patient continued to be arousable by minimal stimuli -His blood pressure still borderline with trend in past 24 hours of 84-117/52-63 -Due to patient still being under sedated he was started on Propofol which dropped hid BP -Central line was placed and patient was started on Levophed -Urine output significantly improved overnight with UO > 2500 -Sputum culture was performed due to foul smelling secretions -Patient was started on Levaquin, Zosyn and Vancomycin to cover HAP/ Aspiration 09/11/19 INTERVAL HISTORY Overnight Events: -Nursing staff reports that in the middle of the night, when she tried to decrease sedation , withing the first tapered dose patient woke up fully and started pulling at his ETT for which sedation rate was increased again -Patient continues to require continuous sedation due to acute encephalopathy making him a risk to harmhimself and staff, for this he requires intubation for airway protection Vital Signs: MAP trend: 65-95 HR trend: 56-64 Tmax: 99.3 SatO2: >98% (@35%) Drips and IVF: Fentanyl @ 15mcg Versed @ 15mg Propofol @15 LR @ 100ml/hr Mechanical Ventilation: Intubation day: 09/09/2019 Mode: AC/VC Vt: 500 FiO2: 35 PEEP: 8 PIP:2 Pmean: 12 Pplateau: 19 I/E: 1:2.3 I/Os: UO: 1275 24h balance: +3,342 NG tube output: 150 BM: 09/09 Glycemia: Glucose trend: 858-125 Insulin use: None New results: WBC 9.14 to 9.84 Platelets up from 159 to 200 GFR up from 55 to >60 Magnesium down from 1.9 to 1.6 Infectious Disease: Antibiotics: Levaquin, Zosyn and Vancomycin day 2 Cultures: sputum from 09/09 growing gram negative rods Diet: NPO Lines and tubes: Gupta catheter: 09/08/19 ETT: 09/09/19 NG tube: 09/09/19 PLAN -Sputum reported with gram negative rods -Vital signs stable -SatO2 has remained stable -Replace PO4 with 30Mmol of KPO4 -Replace KCL with 20mEq IV -Replace Magnesium with 4g MgSO4 -Decision was made to transfer patient to higher level of care - Discharge Plan *PRESCRIPTION DRUG MONITORING PROGRAM REVIEWED*: No *COPY OF PRESCRIPTION DRUG MONITORING REPORT IN PATIENT BHAVANA: No Home Medications: Home Meds ALPRAZolam [Xanax] 2 mg PO ASDIRECTED #40 tablet 09/04/19 [Rx] Amitriptyline [Elavil] 0 mg PO DAILY 09/04/19 [History] cloNIDine [Catapres] 0 mg PO BEDTIME 09/04/19 [History] Patient Handouts: Sepsis, Self Care, Adult Forms: ED Department Discharge - Discharge Summary/Plan Comment DC Time >30 min.: Yes - General Info Date of Service: 09/11/19 Subjective Update: INTERVAL HISTORY Overnight Events: -Nursing staff reports that in the middle of the night, when she tried to decrease sedation , withing the first tapered dose patient woke up fully and started pulling at his ETT for which sedation rate was increased again Vital Signs: MAP trend: 65-95 HR trend: 56-64 Tmax: 99.3 SatO2: >98% (@35%) Drips and IVF: Fentanyl @ 15mcg Versed @ 15mg Propofol @15 LR @ 100ml/hr Mechanical Ventilation: Intubation day: 09/09/2019 Mode: AC/VC Vt: 500 FiO2: 35 PEEP: 8 PIP:2 Pmean: 12 Pplateau: 19 I/E: 1:2.3 I/Os: UO: 1275 24h balance: +3,342 NG tube output: 150 BM: 09/09 Glycemia: Glucose trend: 858-125 Insulin use: None New results: WBC 9.14 to 9.84 Platelets up from 159 to 200 GFR up from 55 to >60 Magnesium down from 1.9 to 1.6 Infectious Disease: Antibiotics: Levaquin, Zosyn and Vancomycin day 2 Cultures: sputum from 09/09 growing gram negative rods Diet: NPO Lines and tubes: Gupta catheter: 09/08/19 ETT: 09/09/19 NG tube: 09/09/19 - Patient Data Vitals - Most Recent: Last Vital Signs Temp 97.5 F 09/11/19 12:00 Pulse 66 09/10/19 21:46 Resp 18 09/11/19 12:00 BP 109/65 09/11/19 12:00 Pulse Ox 98 09/11/19 12:00 Weight - Most Recent: 133.356 kg - Exam Quality Assessment: Reports: Supplemental Oxygen, Central Line/PICC, Urine Catheter, DVT Prophylaxis. Denies: Skin Breakdown General: Reports: Sedated HEENT: Reports: Pupils Equal, Pupils Reactive, Mucous Membr. Moist/[place] Neck: Denies: Lymphadenopathy Lungs: Reports: Decreased Breath Sounds, Crackles. Denies: Rales, Rhonchi, Rub , Stridor, Wheezing Cardiovascular: Reports: Regular Rhythm, Bradycardia. Denies: Murmurs, Gallops , Rubs GI/Abdominal Exam: Soft, Distended. No: Guarding, Rigid, Rebound Extremities: Normal Inspection, Slow Capillary Refill Skin: Reports: Dry, Cool Discharge Operative/Procedures - Procedures Performed Intubation Indication: Airway Protection CL Indication: medication administration
[2019-09-11 13:54] VITALS: BP 102/62
== END 2019-09-11 14:55 | DRG 917 ==
LOC: JD.ED 13:45 → EEVIPCON 15:34 → JD.ICU 15:34
PROVIDERS: ADMIT Internal Medicine; ATTEND Internal Medicine
PROC: 5A1945Z Respiratory Ventilation, 24-96 Consecutive Hours (ICD-10-PCS; principal; 2019-09-09)
PROC: 0D9670Z Drainage of Stomach with Drainage Device, Via Natural or Artificial Opening (ICD-10-PCS; principal; 2019-09-09)
PROC: 02HV33Z Insertion of Infusion Device into Superior Vena Cava, Percutaneous Approach (ICD-10-PCS; principal; 2019-09-09)
PROC: 0BH17EZ Insertion of Endotracheal Airway into Trachea, Via Natural or Artificial Opening (ICD-10-PCS; principal; 2019-09-09)
DX: T46.5X2A Poisoning by other antihypertensive drugs, intentional self-harm, initial encounter (principal); J18.9 Pneumonia, unspecified organism; G93.40 Encephalopathy, unspecified; F32.9 Major depressive disorder, single episode, unspecified; F41.9 Anxiety disorder, unspecified; Z79.899 Other long term (current) drug therapy; R00.1 Bradycardia, unspecified; T50.905A Adverse effect of unspecified drugs, medicaments and biological substances, initial encounter; E83.42 Hypomagnesemia; Z88.5 Allergy status to narcotic agent; Z87.442 Personal history of urinary calculi; K21.9 Gastro-esophageal reflux disease without esophagitis; K44.9 Diaphragmatic hernia without obstruction or gangrene; Z78.1 Physical restraint status
CPT/HCPCS: 36415; 36600; 51702; 80048; 80053; 80306; 80307; 81001; 82570; 82803; 82962; 83605; 83615; 83735; 84100; 84145; 84300; 84443; 85007; 85025; 85027; 85610; 87070; 87077; 87186; 87205; 93005; 93010; 94002; 94003; 94640; 96360; 99285; 99285-25; C9113; J0330; J1200; J1630; J1650; J1956; J2060; J2250; J2310; J2405; J2543; J2704; J3010; J3370; J3475; J7030; J7040; J7050; J7060; J7120; U0002

== ENCOUNTER 2023-11-01 08:37 | Emergency (ER) | payer SELFPAY ==
[2023-11-01 08:51] VITALS: BP 161/114; PULSE 99
== END 2023-11-01 10:07 | disposition home or self-care (01) ==
LOC: JD.ED 08:37
DX: S63.641A Sprain of metacarpophalangeal joint of right thumb, initial encounter (principal); E66.9 Obesity, unspecified; Z79.899 Other long term (current) drug therapy; Z88.5 Allergy status to narcotic agent; Z68.35 Body mass index [BMI] 35.0-35.9, adult; W19.XXXA Unspecified fall, initial encounter
CPT/HCPCS: 73140-26-F5; 73140-F5; 99283

== ENCOUNTER 2024-08-20 02:21 | Emergency (ER) | payer SELFPAY ==
[2024-08-20] MEDS: Lidocaine 4% Patch TOP STA (03:29)
[2024-08-20] MEDS: Acetaminophen/oxyCODONE 325-5 MG Tab PO ONE (03:30)
[2024-08-20 03:32] VITALS: BP 157/97; PULSE 75
[2024-08-20] MEDS: Lidocaine 4% Patch ONE (03:41)
== END 2024-08-20 03:30 | disposition home or self-care (01) ==
LOC: JD.ED 02:21
DX: G24.3 Spasmodic torticollis (principal); E66.9 Obesity, unspecified; Z88.5 Allergy status to narcotic agent; Z68.39 Body mass index [BMI] 39.0-39.9, adult
CPT/HCPCS: 99283; A9270

== ENCOUNTER 2024-08-26 18:29 | Emergency (ER) | payer SELFPAY ==
[2024-08-26 18:46] VITALS: BP 146/112; PULSE 101
[2024-08-26] MEDS: Ketorolac 30 MG/ML SDV IM ONE (19:43)
== END 2024-08-26 22:00 | disposition left against medical advice (07) ==
LOC: JD.ED 18:29
DX: M25.511 Pain in right shoulder (principal); M62.838 Other muscle spasm; E66.9 Obesity, unspecified; Z88.5 Allergy status to narcotic agent; Z79.899 Other long term (current) drug therapy
CPT/HCPCS: 73030; 96372; 99283; J1885